=== PATIENT | female | born 1950 | race Caucasian/White ===

== ENCOUNTER 2017-11-07 12:24 | Emergency (ER) | payer OTHER ==
--- NOTE | 2017-11-07 12:59 | ED CARDIAC/CP/PALPITATIONS ---
History of Present Illness General Chief Complaint: Chest Pain Stated Complaint: CHEST PAIN Source: patient, old records Exam Limitations: no limitations Vital Signs & Intake/Output Vital Signs & Intake/Output Vital Signs Date Time Temp Pulse Resp B/P B/P Pulse O2 O2 Flow FiO2 Mean Ox Delivery Rate 11/07 1525 98.7 67 20 149/68 97 Room Air Room Air 11/07 1233 98.1 82 28 127/77 95 Room Air Allergies Coded Allergies: No Known Allergies (11/07/17) Reconcile Medications Atorvastatin Calcium 20 MG TABLET 1 TAB PO DAILY CHOLESTEROL (Reported) Enalapril Maleate 20 MG TABLET 1 TAB PO DAILY BP (Reported) Fluoxetine HCl 20 MG CAPSULE 1 CAP PO DAILY MENTAL HEALTH (Reported) Gabapentin 300 MG CAPSULE 1 CAP PO QPM UNKNOWN (Reported) Triage Note: SENT BY DR. GOTTI, C/O R SIDED CHEST PAIN RADIATING TO BACK WITH SOB X 3 WEEK, RECENTLY DXD WITH LUNG CA (R), UNSURE OF TYPE AND STAGE. EKG DONE ON ARRIVAL. Triage Nurses Notes Reviewed? yes Onset: Gradual Duration: week(s): Timing: recent history Quality/Severity: moderate Location: right lower chest HPI: 67yo female with hx of recent lung CA diagnosis sent in to ED by Dr. Gotti for evaluation of right sided chest pain x several weeks. Patient reports worsening chest pain for the past several weeks. Pain described as sharp, pleuritic, right anterior chest, without radiation. Patient has had previous CTA and PET scan imaging earlier this year. Patient states Im here for a scan. Patient denies dyspnea, hemoptysis, fevers, chills, abdominal pain, syncope. (Mackenzie NASH,Bozena Bautista) Past History Travel History Traveled to [place] past 21 day No Medical History Any Pertinent Medical History? see below for history Neurological: NONE EENT: NONE Cardiovascular: NONE Respiratory: LUNG CA Gastrointestinal: NONE Hepatic: NONE Renal: NONE Musculoskeletal: NONE Psychiatric: NONE Endocrine: NONE Cancer(s): lung cancer Surgical History Surgical History: non-contributory Psychosocial History What is your primary language Polish Tobacco Use: Current Daily Use Daily Tobacco Use Amount/Type: => 5 Cigarettes daily ETOH Use: denies use Family History Hx Contributory? No (Bozena Carrera) Review of Systems Review of Systems Constitutional: Reports: no symptoms. EENTM: Reports: no symptoms. Respiratory: Reports: see HPI. Cardiovascular: Reports: see HPI. GI: Reports: no symptoms. Genitourinary: Reports: no symptoms. Musculoskeletal: Reports: no symptoms. Skin: Reports: no symptoms. Neurological/Psychological: Reports: no symptoms. Hematologic/Endocrine: Reports: no symptoms. Immunologic/Allergic: Reports: no symptoms. All Other Systems: Reviewed and Negative (Bozena Carrera) Physical Exam Physical Exam General Appearance: well developed/nourished, no apparent distress, alert, awake Head: atraumatic, normal appearance Eyes: Bilateral: normal appearance. Ears, Nose, Throat: hearing grossly normal Neck: normal inspection, supple, full range of motion Respiratory: normal breath sounds, no respiratory distress, lungs clear, right anterior chest wall tenderness Cardiovascular: regular rate/rhythm Peripheral Pulses: 2+ radial (R), 2+ radial (L) Gastrointestinal: normal bowel sounds, soft, non-tender, no organomegaly Back: normal inspection, normal range of motion Extremities: normal inspection, normal range of motion, no edema Neurologic/Psych: awake, alert, oriented x 3 Skin: intact, normal color, warm/dry Core Measures ACS in differential dx? Yes CVA/TIA Diagnosis No Sepsis Present: No Sepsis Focused Exam Completed? No (Bozena Carrera) Progress Differential Diagnosis: AMI, cholecystitis, musculoskeletal pain, pericarditis, pneumonia, pneumothorax, pulmonary embolism, unstable angina Plan of Care: Orders Procedure Date/time Status TROPONIN LEVEL 11/07 1254 Complete D-DIMER 11/07 1254 Complete COMPREHENSIVE METABOLIC PANEL 11/07 1254 Complete CBC WITHOUT DIFFERENTIAL 11/07 1254 Complete EKG 11/07 1226 Active Laboratory Tests 11/07/17 1310: Anion Gap 11, Estimated GFR > 60, BUN/Creatinine Ratio 14.0, Glucose 90, Calcium 8.9, Total Bilirubin 0.6, AST 11 L, ALT 18, Alkaline Phosphatase 77, Troponin I < 0.01, Total Protein 7.0, Albumin 3.7, Globulin 3.3, Albumin/Globulin Ratio 1.1 , D-Dimer High Sensitivty 541 H, CBC w Diff NO MAN DIFF REQ, RBC 3.86 L, MCV 80.0 L, MCH 26.3 L, MCHC 32.8 L, RDW 16.8 H, MPV 7.2 L, Gran % 71.0, Lymphocytes % 19.2 L, Monocytes % 8.1, Eosinophils % 1.3, Basophils % 0.4, Absolute Granulocytes 6.6 H, Absolute Lymphocytes 1.8, Absolute Monocytes 0.7 H, Absolute Eosinophils 0.1, Absolute Basophils 0 CTA rules out PE. Patients labs are stable compared to previous studies. Patient reports significant improvement in her pain following IV Morphine. Spoke with Dr. Gotti regarding this patient. He states patient can go home, he has prescribed her pain medications which are at her pharmacy, he will call her for follow up tomorrow morning. Patient feels ready to go home at this time. The patient is in no acute distress, her vital signs are stable. The patient agrees with the plan of care. The patient was seen and evaluate by Dr. Castillo who agrees with the plan of care. Diagnostic Imaging: Viewed by Me: CT Scan. Discussed w/RAD: CT Scan. Radiology Impression: PATIENT: PACHECO SANDHU PRESENT AGE: 67 PATIENT ACCOUNT NO: [id number] : 49 LOCATION: [facility] ORDERING PHYSICIAN: Bozena NASH SERVICE DATE: 11/07/17 EXAM TYPE: CAT - CTA CHEST-PULMONARY EMBOLISM EXAMINATION: CT ANGIOGRAM OF THE CHEST WITH AND WITHOUT CONTRAST (CT PULMONARY ANGIOGRAM FOR PE) CLINICAL INFORMATION: Chest pain with history of lung cancer. COMPARISON: CTA chest 09/18/2017. TECHNIQUE: Prior to contrast administration, noncontrast localization images were obtained. Subsequently, multidetector volumetric imaging was performed from the thoracic inlet to below the diaphragms following the administration of 95 mL Optiray 320 intravenous contrast. No contrast reaction reported. Sagittal, coronal, and MIP oblique sagittal reformatted images were obtained on the CT workstation, uploaded to PACS, and reviewed. DLP: 390.59 mGy-cm. FINDINGS: QUALITY OF STUDY/CONTRAST BOLUS: Satisfactory. PULMONARY ARTERIES: No central or segmental pulmonary emboli. THORACIC AORTA: No aneurysm or dissection. There are atherosclerotic vascular wall calcifications of the aortic arch. LUNG: There are emphysematous changes of lung. The multiple lung nodules seen on the CT of chest of 09/18/2017 are persistent. These have not substantially changed in size or number. For example one of the larger nodules in the subpleural lung in the right middle lobe axial image 38 (3) measures 9 mm on today's study and the prior exam. PLEURA: Again demonstrated are multiple loculated pleural collections. The volume of the loculated collections has increased since the prior exam. The largest collection remains posterior at the right lung base. This measures approximately 8 x 7.7 cm, axial image 31 (4), and 13.8 cm superior to inferior on sagittal image 12, on today's study. On 09/18/2017 is measured approximately 7.3 x 6.2 cm x 9.2 cm. There are numerous other areas of loculated fluid which are new since prior exam and extend along the pleural surface anterior, laterally and inferiorly. MEDIASTINUM: The mediastinal lymphadenopathy in the subcarina and the right hilum and AP window is persistent. No significant change of the lymphadenopathy since the CT scan of 09/18/2017. CHEST WALL/AXILLA : No axillary or internal mammary lymphadenopathy. OSSEOUS STRUCTURES: Multilevel degenerative spondylosis of the spine with disc height narrowing and endplate spurring of the vertebrae. Status post fusion of the cervical spine with orthopedic plate and screws partially visualized. UPPER ABDOMEN: Again seen are bilateral adrenal masses. These are not substantially changed since prior CT studies. No focal lesion seen in the visualized portions of liver, spleen, pancreas or kidneys. IMPRESSION: 1. No evidence of pulmonary embolism. 2. No acute infiltrate. There are emphysematous changes of the lungs. 3. Increasing volume and size of right-sided loculated pleural collection since prior CT chest 09/18/2017. 4. Persistent multiple bilateral lung nodules stable in size and number since CT chest 09/18/2017. 5. Persistent mediastinal and right hilar lymphadenopathy. 6. Persistent bilateral adrenal masses. VTE: Negative for pulmonary embolism. DICTATED BY: Kamaljit Vargas MD DATE/TIME DICTATED:11/07/171457 TRACE EVIDENCE TECHNICIAN:ROBERT DATE/TIME TRANSCRIBED:11/07/171457 CONFIDENTIAL, DO NOT COPY WITHOUT APPROPRIATE AUTHORIZATION. <Electronically signed in Other Vendor System> SIGNED BY: Kamaljit Vargas MD 11/07/17 1205 Initial ED EKG: sinus rhythm @73bpm, nonspecific ST changes (Mackenzie NASH,Bozena Bautista) Departure Departure Disposition: HOME OR SELF CARE Condition: Stable Clinical Impression Primary Impression: Chest pain Qualifiers: Chest pain type: chest pain on breathing Qualified Code: R07.1 - Chest pain on breathing Secondary Impressions: Lung cancer Qualifiers: Laterality: unspecified laterality Lung location: unspecified part of lung Qualified Code: C34.90 - Malignant neoplasm of unspecified part of unspecified bronchus or lung Pleural effusion Referrals: Ad NASH,Carolann Pena (PCP/Family) Additional Instructions: Follow-up with Dr. Gotti regarding worsening fluid in your lung. He plans on calling you tomorrow. He sent pain medication to your pharmacy. This is likely responsible for some of your right sided pain. If you have any worsening symptoms or other concerns please return to the emergency department. Please note that there might be incidental findings in your evaluation that are unrelated to the current emergency department visit. Please notify your primary care doctor about this emergency department visit in order to obtain and review all of the testing performed so that these incidental findings can be monitored as needed. If you had an x-ray performed, please understand that some fractures may not be seen on the initial set of x-rays. If your symptoms persist you might need a repeat set of x-rays to check for such a fracture. If you had a laceration evaluated, please understand that foreign bodies such as glass or wood may not be visible to the naked eye or on plain x-rays. If the wound becomes red, swollen, increasingly more painful or if there is any drainage from the wound, please have it reevaluated by a physician for the possibility of a retained foreign body. If you're unable to follow up as outlined in the discharge instructions please return to the emergency department. Thank you for choosing the [facility] Emergency Department for your care. It was a pleasure to serve you today. Departure Forms: Customer Survey General Discharge Information (Bozena Carrera) PA/CELL COVERER Co-Sign Statement Statement: ED Attending supervision documentation- [X] I saw and evaluated the patient. I have also reviewed all the pertinent lab results and diagnostic results. I agree with the findings and the plan of care as documented in the PA's/CELL COVERER's documentation. [] I have reviewed the ED Record and agree with the PA's/CELL COVERER's documentation. [] Additions or exceptions (if any) to the PAs/CELL COVERER's note and plan are summarized below: [] (Soham Castillo DO) Critical Care Note Critical Care Note Critical Care Time: non-applicable (Bozena Carrera)
[2017-11-07 13:22] LABS: ABSOLUTE BASOPHIL COUNT 0 /CUMM (0.0-0.2); ABSOLUTE EOSINOPHIL COUNT 0.1 /CUMM (0.0-0.7); ABSOLUTE GRANULOCYTE CT 6.6 /CUMM (1.4-6.5); ABSOLUTE LYMPH COUNT 1.8 /CUMM (1.2-3.4); ABSOLUTE MONOCYTE COUNT 0.7 /CUMM (0.10-0.60); BASOPHIL % 0.4 % (0.0-2.0); EOSINOPHIL % 1.3 % (0-5); HEMATOCRIT 30.9 % (37-47); MEAN CORPUSCULAR HGB 26.3 PG (27.0-31.0); MEAN CORPUSCULAR HGB CONC 32.8 G/DL (33.0-37.0); MEAN PLATELET VOLUME 7.2 FL (7.4-10.4); PLATELET COUNT 289 /CUMM (130-400); RBC DISTRIBUTION WIDTH 16.8 % (11.5-14.5); RED BLOOD CELL CT 3.86 /CUMM (4.20-5.40); WHITE BLOOD CELL COUNT 9.3 /CUMM (4.8-10.8)
[2017-11-07] MEDS ORDERED: ENALAPRIL MALEA20 M1 PO (14:20)
[2017-11-07] MEDS ORDERED: ATORVASTATIN CA20 M1 PO (14:20)
[2017-11-07] MEDS ORDERED: FLUOXETINE HCL20 M2 PO (14:21)
[2017-11-07] MEDS ORDERED: GABAPENTIN300 M2 PO (14:21)
--- NOTE | 2017-11-07 15:33 | CT SCAN REPORT ---
EXAMINATION: CT ANGIOGRAM OF THE CHEST WITH AND WITHOUT CONTRAST (CT PULMONARY ANGIOGRAM FOR PE) CLINICAL INFORMATION: Chest pain with history of lung cancer. COMPARISON: CTA chest 09/18/2017. TECHNIQUE: Prior to contrast administration, noncontrast localization images were obtained. Subsequently, multidetector volumetric imaging was performed from the thoracic inlet to below the diaphragms following the administration of 95 mL Optiray 320 intravenous contrast. No contrast reaction reported. Sagittal, coronal, and MIP oblique sagittal reformatted images were obtained on the CT workstation, uploaded to PACS, and reviewed. DLP: 390.59 mGy-cm. FINDINGS: QUALITY OF STUDY/CONTRAST BOLUS: Satisfactory. PULMONARY ARTERIES: No central or segmental pulmonary emboli. THORACIC AORTA: No aneurysm or dissection. There are atherosclerotic vascular wall calcifications of the aortic arch. LUNG: There are emphysematous changes of lung. The multiple lung nodules seen on the CT of chest of 09/18/2017 are persistent. These have not substantially changed in size or number. For example one of the larger nodules in the subpleural lung in the right middle lobe axial image 38 (3) measures 9 mm on today's study and the prior exam. PLEURA: Again demonstrated are multiple loculated pleural collections. The volume of the loculated collections has increased since the prior exam. The largest collection remains posterior at the right lung base. This measures approximately 8 x 7.7 cm, axial image 31 (4), and 13.8 cm superior to inferior on sagittal image 12, on today's study. On 09/18/2017 is measured approximately 7.3 x 6.2 cm x 9.2 cm. There are numerous other areas of loculated fluid which are new since prior exam and extend along the pleural surface anterior, laterally and inferiorly. MEDIASTINUM: The mediastinal lymphadenopathy in the subcarina and the right hilum and AP window is persistent. No significant change of the lymphadenopathy since the CT scan of 09/18/2017. CHEST WALL/AXILLA: No axillary or internal mammary lymphadenopathy. OSSEOUS STRUCTURES: Multilevel degenerative spondylosis of the spine with disc height narrowing and endplate spurring of the vertebrae. Status post fusion of the cervical spine with orthopedic plate and screws partially visualized. UPPER ABDOMEN: Again seen are bilateral adrenal masses. These are not substantially changed since prior CT studies. No focal lesion seen in the visualized portions of liver, spleen, pancreas or kidneys. IMPRESSION: 1. No evidence of pulmonary embolism. 2. No acute infiltrate. There are emphysematous changes of the lungs. 3. Increasing volume and size of right-sided loculated pleural collection since prior CT chest 09/18/2017. 4. Persistent multiple bilateral lung nodules stable in size and number since CT chest 09/18/2017. 5. Persistent mediastinal and right hilar lymphadenopathy. 6. Persistent bilateral adrenal masses. VTE: Negative for pulmonary embolism.
[2017-11-07 16:08] VITALS: BP 136/84
== END 2017-11-07 16:09 ==
LOC: ERH 12:24
PROVIDERS: Physician Assistant
DX: R07.89 Other chest pain (principal); C34.90 Malignant neoplasm of unspecified part of unspecified bronchus or lung; J90 Pleural effusion, not elsewhere classified
CPT/HCPCS: 93005; 93010

== ENCOUNTER 2017-12-18 13:22 | Inpatient (IN) | payer OTHER ==
[~2017-12-18] VITALS: Ht 165.1 cm; Wt 65.3 kg
[~2017-12-18 13:22] MED LIST: ATORVASTATIN CA20 M1 PO; ENALAPRIL MALEA20 M1 PO; FLUOXETINE HCL20 M2 PO; GABAPENTIN300 M2 PO
--- NOTE | 2017-12-18 13:54 | ED MVC/FALL/TRAUMA COMPLAINT ---
History of Present Illness General Chief Complaint: Fall Stated Complaint: MECHANICAL FALL "MISSED BED AND FELL ON MY BUTT" Source: patient, family Exam Limitations: no limitations Allergies Coded Allergies: No Known Allergies (11/07/17) Reconcile Medications Atorvastatin Calcium 20 MG TABLET 1 TAB PO DAILY CHOLESTEROL (Reported) Enalapril Maleate 20 MG TABLET 1 TAB PO DAILY BP (Reported) Fluoxetine HCl 20 MG CAPSULE 1 CAP PO DAILY MENTAL HEALTH (Reported) Gabapentin 300 MG CAPSULE 1 CAP PO QPM UNKNOWN (Reported) Triage Note: 67F STATES SHE WAS WALKING FROM BATHROOM TO BED AND THOUGHT SHE WAS AT THE BED AND SAT DOWN BUT MISSED IT. PT HAS BEEN ALSO HAVING SEVERE PAIN IN RIB AREA DUE TO LARGE LUNG TUMOR, CURRENTLY ON HIGH DOSE OXYCODONE AND OXYCONTIN REGIMEN WITHOUT RELIEF. HYPOTENSIVE IN TRIAGE. +ABD CRAMPS, DIARRHEA X1 DAY. SOB AT BASELINE. DENIES HEMOPTYSIS. FOLLOWED BY DR HORN Triage Nurses Notes Reviewed? yes Onset: Gradual Duration: constant Timing: single episode today Severity: severe Severity Numbers: 10 HPI: Patient is a 67-year-old female with a past medical history of known right-sided lung cancer where she states that today patient was in her normal state of health in which patient does take high levels of narcotics for her right-sided chest and lung pain where she states that today after having a loose watery diarrhea episode she stood up walk to the bedroom where patient then tried to sit in her bed where she missed the bed and patient landed on her buttock region patient fell to the floor resulting acute onset of worsening right-sided lateral rib pain. Patient denies any specific right lateral rib trauma Denies any preceding episode of lightheaded sensation or dizziness denies any head trauma or syncope loss of consciousness neck or back pain extremity pain abdominal pain. Patient states that deep inhalation and palpation makes worse Patient's oncologist Dr. Medina she starts her treatment protocol tomorrow (Vijaya NASH,John) Vital Signs & Intake/Output Vital Signs & Intake/Output Vital Signs Date Time Temp Pulse Resp B/P B/P Pulse O2 O2 Flow FiO2 Mean Ox Delivery Rate 12/18 1910 98.8 82 18 102/60 94 Room Air 12/18 1606 98.3 87 14 92/44 93 Room Air 12/18 1539 92 Room Air 12/18 1341 97.0 91 18 74/50 92 Room Air (Cristy ALVARENGA,Soham Kelsey) Past History Travel History Traveled to [place] past 21 day No Medical History Any Pertinent Medical History? see below for history Neurological: NONE EENT: NONE Cardiovascular: NONE Respiratory: LUNG CA Gastrointestinal: NONE Hepatic: NONE Renal: NONE Musculoskeletal: NONE Psychiatric: NONE Endocrine: NONE Cancer(s): lung cancer Surgical History Surgical History: non-contributory Psychosocial History What is your primary language Armenian Tobacco Use: Refused to answer Family History Hx Contributory? No (John Bourgeois) Review of Systems Review of Systems Constitutional: Reports: no symptoms. Eyes: Reports: no symptoms. Ears, Nose, Throat, Mouth: Reports: no symptoms. Respiratory: Reports: see HPI, cough. Cardiovascular: Reports: see HPI. Gastrointestinal/Abdominal: Reports: no symptoms. Genitourinary: Reports: no symptoms. Musculoskeletal: Reports: no symptoms. Skin: Reports: no symptoms. Neurological/Psychological: Reports: no symptoms. All Other Systems: Reviewed and Negative (John Bourgeois) Physical Exam Physical Exam General Appearance: moderate distress Head: atraumatic Eyes: Bilateral: normal appearance, PERRL. Ears, Nose, Throat, Mouth: hearing grossly normal Neck: normal inspection, no midline tenderness Respiratory: normal breath sounds, rhonchi Cardiovascular: regular rate/rhythm Gastrointestinal: normal bowel sounds, soft, non-tender Back: no vertebral tenderness Extremities: normal range of motion Neurologic/Psych: no motor/sensory deficits, awake Skin: intact Diagram Body: 1) Normal inspection right lateral intercostal point tenderness clear lungs auscultation Core Measures ACS in differential dx? No CVA/TIA Diagnosis No Sepsis Present: Yes Sepsis Focused Exam Completed? Yes (John Bourgeois) ED Sepsis Exam Date of Focused Sepsis Exam: 12/18/17 Time of Focused Sepsis Exam: 1402 Sepsis Cardiac Exam: Regular Rate/Rhythm Sepsis Resp Exam: Ronchi Sepsis Cap Refill Exam: <2 Sec Sepsis Peripheral Pulse Exam: Normal Sepsis Peripheral Pulse Location: Radial Sepsis Skin Color Exam: Normal for Ethnicity Skin Temp/Moisture Exam: Warm/Dry (John Bourgeois) Progress Differential Diagnosis: aoritic dissection, abd injury, C/T/L spine injury, ext injury, ICH, pelvis injury, pnemothorax, spinal cord injury Diagnostic Imaging: Viewed by Me: CT Scan. Radiology Impression: SEE COMMENTS Initial ED EKG: sinus rhythm at 90 bpm with noted anterolateral ST depressions that is new Comments: PATIENT: PACHECO SANDHU PRESENT AGE: 67 PATIENT ACCOUNT NO: [id number] : 49 LOCATION: [facility] ORDERING PHYSICIAN: John NASH SERVICE DATE: 12/18/17-9933 EXAM TYPE: CAT - CT CHEST WO IV CONTRAST EXAMINATION: CT CHEST WITHOUT CONTRAST CLINICAL INFORMATION: Right lateral rib pain after a fall. Known tumor in the lung. COMPARISON: Plain film chest x-ray 11/27/2017. CTA of chest 11/07/2017, 09/18/2017. TECHNIQUE: Multidetector volumetric CT imaging of the chest was done. Axial MIP volume rendering provided. Sagittal and coronal reformatted images were obtained. DLP: 282.41 mGy-cm FINDINGS: PLEURA/LUNGS: Right lung: The pleural-based lesion seen in the posterior right lung has increased in size since the CT scan of 11/07/2017. This is the largest pleural-based lesion in the right hemithorax. On the CT scan of 11/07/2017, this had an AP dimension of 8.1 cm. On today's exam, this lesion now measures 9.1 cm AP. The masses at the right posterior lung do cause mild compressive atelectasis in the surrounding lung. Multiple other pleural-based lesions in the right hemithorax are also slightly increased in size since prior CT scan. There are lung nodules, though, that have remained stable: 1. Right upper lobe. Image 175 (4). 0.7 cm. Stable. 2. Pleural-based nodule at the right lung base along the major fissure, image 233 (4). 6 mm. This is stable. Left lung: There are stable left lung nodules. 1. In the left lung, there is a 3 mm reticular opacity in the subpleural lung at the left upper lobe, axial image 30 (3). This is unchanged since CT scan 11/07/2017. 2. At the left posterolateral costophrenic angle, there is a smooth bordered nodule measuring 0.8 cm, axial image 51 (3). This is unchanged since prior study. 3. Left lower lobe image 264 (4) 3 mm nodule has remained stable. 4. Left lower lobe image 281 (4) subpleural nodule measuring 3 mm has remained stable. There is zarate-emphysematous lucency of lung. There is no acute infiltrate. There is no pneumothorax. There is no pleural effusion. MEDIASTINUM: There are small shotty lymph nodes in the mediastinum at the pretracheal retrovascular space and AP window, but there is no significant lymphadenopathy. The subcentimeter lymph nodes are stable in appearance since the prior CT scan of 11/07/2017. There is atherosclerotic vascular wall calcification of the aorta and coronary arteries. There is no pericardial effusion. AXILLA: No lymphadenopathy. UPPER ABDOMEN: There is enlargement of both the right and left adrenal gland. The right adrenal gland measures 2.5 cm AP. The left adrenal gland measures 2.5 cm AP. The lesions in both adrenal glands are stable since CT scan of 11/07/2017. The right adrenal gland mass has a density measurement of 21 Hounsfield units. The left adrenal mass has density measurement of 35 Hounsfield units. There is atherosclerotic vascular wall calcifications of the abdominal aorta without aneurysm. The visualized portions of the liver, spleen, pancreas, and kidneys remain unremarkable. OSSEOUS STRUCTURES: There is degenerative spondylosis of the spine, without acute osseous abnormality. No rib fracture. Status post fusion with orthopedic plate and screw at lower cervical spine. IMPRESSION: 1. No acute osseous abnormality. 2. The multiple pleural-based lesions in the right hemithorax have increased slightly in size since prior CT studies. 3. There are additional lung nodules in the left lung and right lung, which have not changed substantially since prior CT scan. 4.. Zarate-emphysematous lucency of lung. 5. Shotty subcentimeter lymph nodes in the mediastinum. No bulky lymphadenopathy. 6. Stable bilateral adrenal masses. DICTATED BY: Kamaljit Vargas MD DATE/TIME DICTATED:12/18/17 (John oBurgeois) Plan of Care: Orders Procedure Date/time Status Regular Diet 12/19 B Active CBC WITHOUT DIFFERENTIAL 12/19 06 Active BASIC ELECTROLYTES PLUS BUN&CR 12/19 06 Active TROPONIN LEVEL 12/19 0200 Active EKG 12/19 0200 Active LACTIC ACID 12/18 2101 Active CULTURE,URINE 12/18 1903 Active CORTISOL AM 12/18 190 Active Pathway - chart 12/18 185 Active PT Evaluate & Treat 12/18 1856 Active Pathway - chart 12/18 1856 Active House Staff 12/18 1856 Active Patient Data 12/18 1856 Active Code Status 06/25 1857 Active TROPONIN LEVEL 12/18 1854 Active EKG 12/18 185 Active CULTURE,STOOL 12/18 185 Active OVA AND PARASITE EXTENDED 12/18 185 Active URINALYSIS 12/18 1851 Active LACTIC ACID 12/18 1801 Complete Misc Message 12/18 1750 Active ED Holding Orders 12/18 1750 Active Admit to inpatient 12/18 1750 Active Vital Signs 12/18 1750 Active Code Status 12/18 1750 Complete Patient Data 12/18 1742 Active Add-on Test (ER Only) 12/18 1715 Active BLOOD CULTURE 12/18 1715 Active Intake & Output 12/18 1536 Active URINE DRUG SCREEN FOR ER ONLY 12/18 1355 Active TROPONIN LEVEL 12/18 1355 Active COMPREHENSIVE METABOLIC PANEL 12/18 1355 Active CBC WITHOUT DIFFERENTIAL 12/18 1355 Active EKG 12/18 1355 Active THYROID STIMULATING HORMONE 12/18 1314 Active LACTIC ACID 12/18 1314 Active FREE T4 12/18 1314 Active CORTISOL PM 12/18 1314 Active Lab Add-on Test 12/18 UNK Active VTE Mechanical Prophylaxis 12/18 UNK Active Vital Signs 12/18 UNK Active MISTAKE 12/18 UNK Active Telemetry/Rn L And D 12/18 UNK Active Hemoccult 12/18 UNK Active Activity/Ambulation 12/18 UNK Active Current Medications Sig/Matt Start time Last Medication Dose Stop Time Status Admin Oxycodone HCl 10 MG Q6 12/18 2359 AC (Roxicodone) Gabapentin 300 MG QPM 12/18 2100 AC (Neurontin) Sodium Chloride 1,000 ML BOLUS ONE 12/18 1914 UNVr (Normal Saline 0.9%) 12/18 2013 Acetaminophen 650 MG Q6P PRN 12/18 1900 AC (Tylenol) Fluoxetine HCl 20 MG DAILY 12/18 1857 AC (Prozac) Atorvastatin Calcium 20 MG DAILY 12/18 1856 AC (Lipitor) Laboratory Tests 12/18/17 1805: Lactic Acid 4.9 H 12/18/17 1314: Anion Gap 17 H, Estimated GFR > 60, BUN/Creatinine Ratio 24.4, Glucose 133 H, Lactic Acid 5.6 H, Calcium 9.5, Total Bilirubin 1.0, AST 50 H, ALT 30, Alkaline Phosphatase 88, Troponin I 0.03, Total Protein 7.1, Albumin 3.6, Globulin 3.5, Albumin/Globulin Ratio 1.0 L, TSH Pending, Free T4 Pending, Cortisol PM Sample Pending, CBC w Diff MAN DIFF ORDERED, RBC 4.05 L, MCV 77.6 L, MCH 25.3 L, MCHC 32.6 L, RDW 18.9 H, MPV 7.6, Gran % 90.2 H, Lymphocytes % 4.5 L, Monocytes % 5.1, Eosinophils % 0.1, Basophils % 0.1, Absolute Granulocytes 16.8 H, Segmented Neutrophils Pending, Absolute Lymphocytes 0.8 L , Absolute Monocytes 1.0 H, Absolute Eosinophils 0, Absolute Basophils 0 Microbiology 12/18 1902 URINE ROUT: Urine Culture - ORD 12/19 1851 STOOL: Ova and Parasite Macroscopic Exam - ORD 12/19 1851 STOOL: Stool Culture - ORD 12/18 1814 BLOOD: Blood Culture - RECD 12/18 1804 BLOOD: Blood Culture - RECD Patient upon initial presentation was noted to be in distress and hypotensive denies any head strike Nexus criteria 0 no central spinous tenderness nontender abdomen No respiratory distress Initially I am hesitant to administering narcotics due to patient's blood pressure Patient will receive blood work and CT scan of chest Initial EKG showed new changes from the proximal leg 1 month ago for concerns of anterolateral leads depression patient also presents hypotensive most likely this is due to patient's narcotic use Patient has nontender extremities upon palpation as well as abdomen and lumbar spine Patient does note to have mild rhonchi to the posterior lung field patient states that she has mild cough however denies any fever patient does have concerns of leukocytosis and lactic acidosis CT scan was unremarkable for concerns of pneumonia however patient does have concerns of lung mass which can superimposed infectious process of the lung. Patient was given prophylactic antibiotics blood cultures pending patient will be admitted to telemetry for concerns of EKG findings Discussed patient cardiology who is aware and agrees with admission Discussed admission with patient who agrees as well as family Blood pressure did improve with IV fluids (John Bourgeois) (Cristy ALVARENGA,Soham Kelsey) Departure Departure Disposition: STILL A PATIENT Condition: Stable Clinical Impression Primary Impression: EKG abnormalities Secondary Impressions: Pneumonia, Septic shock Referrals: Carolann Owen (PCP/Family) Departure Forms: Customer Survey General Discharge Information Admission Note Spoke With: Nikko Araiza MD Documentation of Exam: Documentation of any treatments & extenuating circumstances including Concerns Regarding Discharge (functional status, medication knowledge or non-compliance, living conditions, etc.) that warrant an admission rather than observation: [ Patient requires IV fluids, pain management, infectious disease consultation, IV antibiotics, telemetry monitoring, cardiology consultation, oncology consultation, repeat labs and EKG] (John Bourgeois) PA/HOME HEALTH BILLING SPECIALIST Co-Sign Statement Statement: ED Attending supervision documentation- [x] I saw and evaluated the patient. I have also reviewed all the pertinent lab results and diagnostic results. I agree with the findings and the plan of care as documented in the PA's/HOME HEALTH BILLING SPECIALIST's documentation. Patient presents for evaluation of pain status post fall, patient has a history of lung cancer. Physical examination reveals [] I have reviewed the ED Record and agree with the PA's/HOME HEALTH BILLING SPECIALIST's documentation. [] Additions or exceptions (if any) to the PAs/HOME HEALTH BILLING SPECIALIST's note and plan are summarized below: [] (Cristy ALVARENGA,Soham Kelsey) Critical Care Note Critical Care Note Critical Care Time: 30-74 min (John Bourgeois)
[2017-12-18 15:40] LABS: ABSOLUTE BASOPHIL COUNT 0 /CUMM (0.0-0.2); ABSOLUTE EOSINOPHIL COUNT 0 /CUMM (0.0-0.7); ABSOLUTE GRANULOCYTE CT 16.8 /CUMM (1.4-6.5); ABSOLUTE LYMPH COUNT 0.8 /CUMM (1.2-3.4); BASOPHIL % 0.1 % (0.0-2.0); EOSINOPHIL % 0.1 % (0-5); HEMATOCRIT 31.4 % (37-47); MEAN CORPUSCULAR HGB 25.3 PG (27.0-31.0); MEAN CORPUSCULAR HGB CONC 32.6 G/DL (33.0-37.0); MEAN CORPUSCULAR VOLUME 77.6 FL (81.0-99.0); MEAN PLATELET VOLUME 7.6 FL (7.4-10.4); PLATELET COUNT 350 /CUMM (130-400); RBC DISTRIBUTION WIDTH 18.9 % (11.5-14.5); RED BLOOD CELL CT 4.05 /CUMM (4.20-5.40); WHITE BLOOD CELL COUNT 18.6 /CUMM (4.8-10.8)
[2017-12-18 15:50] LABS: GRANULOCYTE % 90.2 % (42.2-75.2)
--- NOTE | 2017-12-18 16:21 | CT SCAN REPORT ---
EXAMINATION: CT CHEST WITHOUT CONTRAST CLINICAL INFORMATION: Right lateral rib pain after a fall. Known tumor in the lung. COMPARISON: Plain film chest x-ray 11/27/2017. CTA of chest 11/07/2017, 09/18/2017. TECHNIQUE: Multidetector volumetric CT imaging of the chest was done. Axial MIP volume rendering provided. Sagittal and coronal reformatted images were obtained. DLP: 282.41 mGy-cm FINDINGS: PLEURA/LUNGS: Right lung: The pleural-based lesion seen in the posterior right lung has increased in size since the CT scan of 11/07/2017. This is the largest pleural-based lesion in the right hemithorax. On the CT scan of 11/07/2017, this had an AP dimension of 8.1 cm. On today's exam, this lesion now measures 9.1 cm AP. The masses at the right posterior lung do cause mild compressive atelectasis in the surrounding lung. Multiple other pleural-based lesions in the right hemithorax are also slightly increased in size since prior CT scan. There are lung nodules, though, that have remained stable: 1. Right upper lobe. Image 175 (4). 0.7 cm. Stable. 2. Pleural-based nodule at the right lung base along the major fissure, image 233 (4). 6 mm. This is stable. Left lung: There are stable left lung nodules. 1. In the left lung, there is a 3 mm reticular opacity in the subpleural lung at the left upper lobe, axial image 30 (3). This is unchanged since CT scan 11/07/2017. 2. At the left posterolateral costophrenic angle, there is a smooth bordered nodule measuring 0.8 cm, axial image 51 (3). This is unchanged since prior study. 3. Left lower lobe image 264 (4) 3 mm nodule has remained stable. 4. Left lower lobe image 281 (4) subpleural nodule measuring 3 mm has remained stable. There is zarate-emphysematous lucency of lung. There is no acute infiltrate. There is no pneumothorax. There is no pleural effusion. MEDIASTINUM: There are small shotty lymph nodes in the mediastinum at the pretracheal retrovascular space and AP window, but there is no significant lymphadenopathy. The subcentimeter lymph nodes are stable in appearance since the prior CT scan of 11/07/2017. There is atherosclerotic vascular wall calcification of the aorta and coronary arteries. There is no pericardial effusion. AXILLA: No lymphadenopathy. UPPER ABDOMEN: There is enlargement of both the right and left adrenal gland. The right adrenal gland measures 2.5 cm AP. The left adrenal gland measures 2.5 cm AP. The lesions in both adrenal glands are stable since CT scan of 11/07/2017. The right adrenal gland mass has a density measurement of 21 Hounsfield units. The left adrenal mass has density measurement of 35 Hounsfield units. There is atherosclerotic vascular wall calcifications of the abdominal aorta without aneurysm. The visualized portions of the liver, spleen, pancreas, and kidneys remain unremarkable. OSSEOUS STRUCTURES: There is degenerative spondylosis of the spine, without acute osseous abnormality. No rib fracture. Status post fusion with orthopedic plate and screw at lower cervical spine. IMPRESSION: 1. No acute osseous abnormality. 2. The multiple pleural-based lesions in the right hemithorax have increased slightly in size since prior CT studies. 3. There are additional lung nodules in the left lung and right lung, which have not changed substantially since prior CT scan. 4.. Zarate-emphysematous lucency of lung. 5. Shotty subcentimeter lymph nodes in the mediastinum. No bulky lymphadenopathy. 6. Stable bilateral adrenal masses.
--- NOTE | 2017-12-18 17:56 | History & Physical ---
Sugey ALVARENGA,Chioma 12/18/17 4664: General Information and HPI MD Statement: I have seen and personally examined PACHECO SANDHU and documented this H&P. The patient is a 67 year old F who presented with a patient stated chief complaint of [FALL]. Source of Information: patient, old records, EMS Exam Limitations: no limitations History of Present Illness: Patient 5-year-old female with past medical history significant for recently diagnosed metastatic non-small cell lung cancer, hypertension, cervical myelomalacia, depression presented to [facility] after having a mechanical fall. Patient apparently went to the restroom today is afternoon, when coming back try to sit on her bed and fell down. She denies any nausea vomiting, lightheadedness prior to her fall, thought to be disclose enough to sit unfortunately fell down due to less proximately. She didn't have any confusion/ convulsive movements during the fall. She called her who reached home from his workplace. She found to be in restroom having an episode of diarrhea but then he reached back. They presented to ER subsequently for further evaluation. She recently ate these of the soft reports that on Monday. Today she had single episode of diarrhea, otherwise no urinary symptoms, no incrase in cough from baseline, no fevers, chest pain. She did have crampy abdominal pain. For the past few months patient has been having decreased oral intake and significant weight loss. She was able to do her activities of daily living like walking talking although short of breath with these activities. She recently had a chest x-ray in August which did show pleural effusion which was further evaluated by CT scan of chest she was referred to Dr. Campos for further evaluation underwent a PET scan which did show malignancy in the right lung nodules with FDG avid pleural effusion. Rectal crucially reports positive and left adrenal mass which is FDG avid. Active smoking - 50pack yrs, social alcohol, no drugs Allergies/Medications Allergies: Coded Allergies: No Known Allergies (11/07/17) Home Med list Atorvastatin Calcium 20 MG TABLET 1 TAB PO DAILY CHOLESTEROL (Reported) Enalapril Maleate 20 MG TABLET 1 TAB PO DAILY BP (Reported) Fluoxetine HCl 20 MG CAPSULE 1 CAP PO DAILY MENTAL HEALTH (Reported) Gabapentin 300 MG CAPSULE 1 CAP PO QPM UNKNOWN (Reported) Compliance With Home Meds: GOOD Past History Travel History Traveled to [place] past 21 day No Medical History Neurological: NONE EENT: NONE Cardiovascular: NONE Respiratory: LUNG CA Gastrointestinal: NONE Hepatic: NONE Renal: NONE Musculoskeletal: NONE Psychiatric: NONE Endocrine: NONE Cancer(s): lung cancer Surgical History Surgical History: non-contributory Past Family/Social History Family History Relations & Conditions if any Relation not specified for: *No pertinent family history Psychosocial History Where do you live? Home Who Do You Live With? spouse Services at Home: None Functional Ability ADLs Independent: dressing, eating, toileting, bathing. Ambulation: independent IADLs Needs Assist: shopping, housework, finances, food prep, telephone, transportation, medication admin. Review of Systems Review of Systems Constitutional: Reports: see HPI. Exam & Diagnostic Data Last 24 Hrs of Vital Signs/I&O Vital Signs Date Time Temp Pulse Resp B/P B/P Pulse O2 O2 Flow FiO2 Mean Ox Delivery Rate 12/18 1606 98.3 87 14 92/44 93 Room Air 12/18 1539 92 Room Air 12/18 1341 97.0 91 18 74/50 92 Room Air Intake & Output 12/18 1600 12/18 0800 12/18 0000 Intake Total 1000 Output Total Balance 1000 Intake, IV 1000 Physical Exam General Appearance Alert, Oriented X3, Cooperative, Mild Distress Skin No Rashes, No Breakdown Skin Temp/Moisture Exam: Warm/Dry HEENT Atraumatic, PERRLA, EOMI Neck Supple Cardiovascular Normal S1, Normal S2, No Murmurs Lungs Clear to Auscultation, Normal Air Movement Abdomen Normal Bowel Sounds, Soft, No Tenderness Neurological Normal Gait, Normal Speech, Strength at 5/5 X4 Ext, Normal Tone, Sensation Intact Extremities No Cyanosis, No Edema, clubbing in her bilateral upper extremities, great toes of lower extremities Vascular Normal Pulses Last 24 Hrs of Labs/Camilo: Laboratory Tests 12/18/17 1805: Lactic Acid 4.9 H 12/18/17 1314: Anion Gap 17 H, Estimated GFR > 60, BUN/Creatinine Ratio 24.4, Glucose 133 H, Lactic Acid 5.6 H, Calcium 9.5, Total Bilirubin 1.0, AST 50 H, ALT 30, Alkaline Phosphatase 88, Troponin I 0.03, Total Protein 7.1, Albumin 3.6, Globulin 3.5, Albumin/Globulin Ratio 1.0 L, TSH Pending, Free T4 1.80, Cortisol PM Sample Pending, CBC w Diff MAN DIFF ORDERED, RBC 4.05 L, MCV 77.6 L, MCH 25.3 L, MCHC 32.6 L, RDW 18.9 H, MPV 7.6, Gran % 90.2 H, Lymphocytes % 4.5 L, Monocytes % 5.1, Eosinophils % 0.1, Basophils % 0.1, Absolute Granulocytes 16.8 H, Segmented Neutrophils 89 H, Absolute Lymphocytes 0.8 L, Lymphocytes 3 L, Monocytes 6, Absolute Monocytes 1.0 H, Eosinophils 1, Absolute Eosinophils 0, Basophils 1, Absolute Basophils 0, Platelet Estimate VERIFIED BY SMEAR, Normochromic RBCs VERIFIED, Anisocytosis 1+, Fld Total RBCs Counted 100 Microbiology 12/18 1902 URINE ROUT: Urine Culture - COLB 12/19 1851 STOOL: Ova and Parasite Macroscopic Exam - COLB 12/19 1851 STOOL: Stool Culture - COLB 12/18 1814 BLOOD: Blood Culture - RECD 12/18 1804 BLOOD: Blood Culture - RECD Diagnostic Data EKG Results NSR with ST depressions in precordial leads. Other Results 1. No acute osseous abnormality. 2. The multiple pleural-based lesions in the right hemithorax have increased slightly in size since prior CT studies. 3. There are additional lung nodules in the left lung and right lung, which have not changed substantially since prior CT scan. 4.. Martinez-emphysematous lucency of lung. 5. Shotty subcentimeter lymph nodes in the mediastinum. No bulky lymphadenopathy. 6. Stable bilateral adrenal masses. Assessment/Plan Assessment: Patient is a 67-year-old female with recently diagnosed metastatic lung cancer with right-sided pleural effusion, left adrenal metastasis, the patient presented to [facility] after having a mechanical FALL. She did have a single episode of diarrhea prior to presentation. She has been losing weight with poor per oral intake lately. Vital signs at presentation are significant for afebrile, heart rate 7091, blood pressure 74/50 mmHg improved to 102/60 mmHg after 3 L of bolus. Physical examination did show decreased breath sounds in the right lung base, significant clubbing in the upper extremities. Abdomen is nontender to palpation. Labs did show white count of 18.6 with left shift, microcytic anemia, BUN 22 creatinine 0.9, lactic acid 5.6 improved to 4.6 after 2 L. AST/ALT of 50/30. Blood cultures were sent. CT scan did show multiple protestations of the right hemithorax with increased size of nodules compared to October 2017, diffuse emphysema, adrenal masses. Differential Profound hypotension in the setting of adrenal insufficiency vs sepsis of unknown origin vs acute gastroenteritis. Problem list 1. Hypotensive shock 2. Metastatic Non small cell Lung cancer 3. Diffuse ST depressions on precordial leads 4. H/O depression 5. H/O cervical disc problems 6. H/O HTN Plan Admit to telemetry floor Hypotensive shock Adrenal insufficinecy vs sepsis of unknown source vs acute gastroenteritis * check random cortisol, TSH, free T4 * Aggressive hydration * Blood cultures, urine cultures, Ova and parasites * Received a single dose of antibiotics -- will hold off for now * CT abdomen and pelvis with IV contrast * Trend lactic acid * Monitor urine output * Check orthostatics * Consult EKG changes Pleuritic baseline chest pain, no cardiac related pain. Asymptomatic. Hypotensive. EKG shows NSR with diffuse ST depressions on precordial leads V2 to V6. No significant cardiac history except for HTN. Trop of 0.08 initially. * serial EKG and trop * ECHO * Consult cardio Metastatic Non small cell Lung cancer Pathology had necrosis, concern for squamous cell cancer. Smoked for 50 pack yrs , sill smoker 1 to 2 per day. Loosing weight and short of breath with even ADLs lately. PET on 10/03/17 did show malignant right pleural effusion, nodules on right side, left adrenal mets. Had cough at baseline. Apparently scheduled for chemo tomorrow (first dose). Currently on pain medications for right sided chest pain, increased lately to oxycontin 15mg BID, oxycodone. * inform * Pain control H/O depression: continue fluoxetine H/O HTN: hold antihypertensives DVT prophylaxis SC lovenox Code status Full code As Ranked By This Provider Problem List: 1. Pleural effusion 2. EKG abnormalities 3. Hypotension Core Measures/Misc (03/12) Acute Coronary Syndrome ACS Diagnosis: No Congestive Heart Failure Congestive Heart Failure Diagnosis No Cerebrovascular Accident CVA/TIA Diagnosis: No VTE (View Protocol) VTE Risk Factors Acute Medical Illness No Mechanical VTE Prophylaxis d/t N/A MechProphylax Ordered No VTE Pharm Prophylaxis d/t NA PharmProphylax ordered Sepsis (View protocol) Sepsis Present: Yes If YES complete Sepsis Event Note If YES complete Sepsis Event Note Resident Review Statement Resident Statement: examined this patient, discussed with internal revenue service agent, agreed with internal revenue service agent, discussed with family, reviewed EMR data (avail), discussed with nursing , discussed with case mgmt, reviewed images, amended to note Other Findings: ABOVE Nikko Araiza 12/19/17 0304: Core Measures/Misc (03/12) Sepsis (View protocol) If YES complete Sepsis Event Note If YES complete Sepsis Event Note Attending MD Review Statement Attending Statement Attending MD Statement: examined this patient, discuss w/resident/PA/NUTRITION SPECIALIST, agreed w/resident/PA/NUTRITION SPECIALIST, discussed with family, reviewed EMR data (avail), reviewed images, amended to note Attending Assessment/Plan: CC: Cramping abdominal pain, one episode of diarrhea and fall PMH: Lung cancer 67-year-old female who was brought in ER by her after a fall. Patient states that she came back from bathroom and was about to sit on a bed, she thought that she reached the edge of the bed but apparently she missed it and she fell on the floor on buttock. She was little confused after the fall as she realized that she was on the floor and not on the bed. At that time she called her to inform. Later he called back to check on her and patient was not answering the call so he rushed home. At that time patient had a large bowel movement. This concerns patient was brought in ER. Patient states that she was feeling abdominal cramping before the fall that's why she went to use the bathroom but she did not have any bowel movement. She just had one episode of loose bowel movement after the fall. Even in ER she went couple of times to bathroom with a crampy feeling in abdomen but did not have bowel movement. These abdominal cramps are of one day duration. She denies any fever, chills, no different food intake, she has decreased appetite and has been trying to drink boost and ensure. She is expected to undergo chemotherapy tomorrow she has rib pain due to her cancer and recently her pain regimen was increased. Vitals: Temperature 97.0, pulse 91, RR 18, blood pressure 74/50 on arrival improved to 102/60, saturating 92% on room air On exam: A O 3, cooperative, no acute distress, neck supple, JVD normal, no lymphadenopathy, mucosa moist, no focal neurological deficit, no dependent edema , no obvious skin rashes or inflammation CVS: S1-S2, RRR. RS: Clear to auscultate bilaterally, decreased air entry on right side. Abdomen: Soft, tender to palpate lower quadrants, no guarding or rigidity or rebound, ND, bowel sounds present. CT chest: 1. No acute osseous abnormality. 2. The multiple pleural-based lesions in the right hemithorax have increased slightly in size since prior CT studies. 3. There are additional lung nodules in the left lung and right lung, which have not changed substantially since prior CT scan. 4.. Martinez-emphysematous lucency of lung. 5. Shotty subcentimeter lymph nodes in the mediastinum. No bulky lymphadenopathy. 6. Stable bilateral adrenal masses. CT abdomen pelvis with IV contrast: 1. Diverticulitis of the distal descending proximal sigmoid colon. 2. Bilateral adrenal masses stable since CAT scan 11/07/2017. 3. Bilateral lung masses. See separate CT of chest report performed today. Assessment and plan 67-year-old female with recently diagnosed lung cancer awaiting chemotherapy tomorrow presented in ER after a fall. Her fall appears mechanical but at the same time she was hypotensive on arrival which may be contributing to the fall and confusion. Patient had cramping abdominal pain and one episode of loose bowel movement, tender to palpate and right and left lower quadrants given her significant leukocytosis and left shift hypotension and lactic acidosis, CT abdomen with IV contrast was obtained which showed findings of diverticulitis which could explain her symptoms. Random cortisol was appropriately elevated, as she has metastases to adrenals, adrenal insufficiency was ruled out. Patient received 4 L normal saline in ER and responded appropriately for blood pressure and lactic acidosis. But patient was found to have ST depression on lateral leads on ECG, probably secondary to demand with hypotension but she benefits telemetry admission for further monitoring as she has extensive smoking history. + Diverticulitis + Severe sepsis secondary to diverticulitis + ST depression probably secondary to demand ischemia + Metastatic lung cancer - Admit to telemetry - Continue normal saline at 100 mL per hour after 4 L bolus - Serial troponins and ECGs - Continuous telemetry monitoring - Continue IV ceftriaxone and Flagyl - Cardiology consult in a.m. - Blood cultures - Trend lactate - Hold antihypertensive medications - UA and urine cultures - Inform patient's oncologist about patient being in hospital - I had extensive discussion about end-of-life wishes. Patient's and patient expressed to be full code but does not want prolonged artificial support. (If patient is not responding appropriately to CPR, he may consider DNR at that time. Patient's was very explicit about this) agreeable for IV pressors if required TTS 30 min
--- NOTE | 2017-12-18 20:59 | CT SCAN REPORT ---
EXAMINATION: CT ABDOMEN AND PELVIS WITH CONTRAST CLINICAL INFORMATION: Presumptive Dx: RULE OUT SOURCE OF SEPSIS, ADRENAL HEMORRHAGE/MASS Signs Symptoms: PROFOUND HYPOTENSION, METASTATIC LUNG CANCER WITH METS COMPARISON: PET/CT exam 10/03/2017 . CTA chest today. TECHNIQUE: Multidetector volumetric imaging was performed of the abdomen and pelvis following IV administration of 95 mL of Optiray 320 intravenous contrast. Sagittal and coronal reformatted images were obtained on the technologist's workstation. DLP: 312.86 mGy-cm FINDINGS: LUNG BASES: See separate report CT of chest performed today. Pleural-based masses again seen at the right lung base. Compressive atelectasis right lung base. Small nodule at the left costophrenic angle. LIVER, GALLBLADDER, AND BILIARY TREE: The liver is normal in size, shape, and attenuation. No focal hepatic lesion or biliary ductal dilatation is present. The gallbladder is unremarkable with no evidence of radiopaque gallstones, gallbladder wall thickening, or obvious pericholecystic inflammatory changes. PANCREAS: Unremarkable. SPLEEN: Unremarkable. ADRENAL GLANDS: Bilateral adrenal masses each measuring about 2.5 cm AP. These are stable in size since 11/07/2017. KIDNEYS AND URETERS: The kidneys are normal in size, shape, and attenuation. No hydronephrosis, hydroureter, or calculi seen. No perinephric stranding. BLADDER: Unremarkable. GASTROINTESTINAL TRACT: There are diverticula of the left colon sigmoid. There is focal bowel wall thickening and pericolonic edema involving the distal descending proximal sigmoid colon consistent with a diverticulitis. There is no bowel obstruction. No bowel perforation. The appendix is normal. The small bowel loops are unremarkable. ABDOMINAL WALL: No significant hernia is appreciated. LYMPH NODES: Normal. VASCULAR: There is atherosclerotic vascular wall calcifications of aorta and iliac arteries without aneurysm. PELVIC VISCERA: Prostate is anteverted. There is no adnexal abnormality. OSSEOUS STRUCTURES: Degenerative spondylosis spine with multilevel disc height narrowing and endplate spurring and facet joint arthrosis. There is a grade 1 anterolisthesis of L4 on L5 due to the facet joint disease. There is no spondylolysis. No suspicious osseous lesion. IMPRESSION: 1. Diverticulitis of the distal descending proximal sigmoid colon. 2. Bilateral adrenal masses stable since CAT scan 11/07/2017. 3. Bilateral lung masses. See separate CT of chest report performed today.
[2017-12-18 22:19] VITALS: BP 156/68
--- NOTE | 2017-12-19 03:06 | Admission Certification ---
Admission Certification Certification Statement - As attending physician, I certify that at the time of - admission, based on clinical presentation, severity of - symptoms, need for further diagnostic testing and - therapeutic interventions, and risk of adverse outcomes - without in-hospital treatment, in my clinical assessment, - this patient requires an acute hospital stay for a minimum - of two nights or longer. I have also considered psychsocial - factors such as support system, advanced age, financial - issues, cognitive issues, and failed out-patient treatments, - past re-admission history, safety of patient, and lack of - compliance as applicable. Specific rationale supporting this admission is: Severe sepsis secondary to diverticulitis
[2017-12-19 06:39] VITALS: BP 112/60
--- NOTE | 2017-12-19 06:40 | PN- Housestaff ---
Subjective Follow-up For: Diverticulitis Hypotension-resolved Complaints: no complaints Tele-Events Since Last Visit: Normal sinus rhythm heart rate 74 Subjective: Patient seen and examined at bedside. She was sitting comfortably in the chair and having breakfast. She denied abdominal pain, nausea, vomiting, diarrhea. She expressed concern to go home today. Review of Systems Constitutional: Reports: no symptoms. Objective Last 24 Hrs of Vital Signs/I&O Vital Signs Date Time Temp Pulse Resp B/P B/P Pulse O2 O2 Flow FiO2 Mean Ox Delivery Rate 12/19 0800 93 Nasal 2.0L Cannula 12/19 0639 97.8 81 18 112/60 94 Nasal Cannula 12/18 2220 98 Nasal 2.0L Cannula 12/18 2219 97.7 78 18 156/68 90 Room Air 12/18 1910 98.8 82 18 102/60 94 Room Air 12/18 1606 98.3 87 14 92/44 93 Room Air 12/18 1539 92 Room Air Intake & Output 12/19 1600 12/19 0800 12/19 0000 Intake Total 850 1000 Output Total 350 Balance 500 1000 Intake, IV 450 1000 Intake, Oral 400 Output, Urine 350 Patient 144 lb Weight Weight Bed scale Measurement Method Physical Exam General Appearance: Alert, Oriented X3, Cooperative, No Acute Distress Cardiovascular: Regular Rate, Normal S1, Normal S2, No Murmurs Lungs: Clear to Auscultation Abdomen: Soft, No Tenderness, No Hepatospenomegaly Neurological: Normal Speech, Strength at 5/5 X4 Ext, Normal Tone, Sensation Intact Extremities: No Cyanosis, No Edema, Normal Pulses Current Medications: Current Medications Sig/Matt Start time Last Medication Dose Route Stop Time Status Admin Acetaminophen 650 MG Q6P PRN 12/18 1899 DCD PO Atorvastatin Calcium 20 MG DAILY 12/18 1856 DCD 12/19 PO 0824 Azithromycin 500 MG ONCE ONE 12/18 1714 DC 12/18 Sodium Chloride 250 ML IV 12/18 1813 192 Ceftriaxone Sodium 1,000 MG 0 12/19 1899 DCD IV Ceftriaxone Sodium 1,000 MG DAILY 12/19 0200 DC IV Ceftriaxone Sodium 0 .STK-MED ONE 12/18 1748 DC .ROUTE Ceftriaxone Sodium 1,000 MG ONCE ONE 12/18 1714 DC 12/18 IV 12/19 1715 190 Fluoxetine HCl 20 MG DAILY 12/18 1857 DCD 12/19 PO 0824 Gabapentin 300 MG QPM 12/18 2100 DCD 12/18 PO 2115 Gabapentin 0 .STK-MED ONE 12/18 2053 DC PO Heparin Sodium 5,000 UNIT Q8 12/18 2200 DCD 12/19 (Porcine) SC 0610 Ketorolac 0 .STK-MED ONE 12/18 1527 DC Tromethamine .ROUTE Metronidazole 500 MG IQ8 12/19 0200 DCD 12/19 N/A 1 UNIT IV 0825 Oxycodone HCl 15 MG Q12 12/19 0900 DCD 12/19 PO 0830 Oxycodone HCl 10 MG Q6 12/18 2359 DCD 12/19 PO 1219 Oxycodone HCl 0 .STK-MED ONE 12/18 1748 DC PO Oxycodone HCl 10 MG ONCE ONE 12/18 1700 DC 12/18 PO 12/18 1701 1753 Potassium Chloride 40 MEQ ONCE ONE 12/19 1230 DC 12/19 PO 12/19 1231 1224 Sodium Chloride 1,000 ML Q10H 12/18 2014 DC 12/18 IV 2123 Sodium Chloride 1,000 ML BOLUS ONE 12/18 1915 CAN IV 12/18 2014 Sodium Chloride 1,000 ML BOLUS ONE 12/18 1800 DC 12/18 IV 12/18 1859 1927 Sodium Chloride 1,000 ML BOLUS ONE 12/18 1700 DC 12/18 IV 12/18 1759 1737 Sodium Chloride 1,000 ML BOLUS ONE 12/18 1615 DC 12/18 IV 12/18 1714 1619 Last 24 Hrs of Lab/Camilo Results Last 24 Hrs of Labs/Mics: Laboratory Tests 12/19/17 0618: Anion Gap 9, Estimated GFR > 60, BUN/Creatinine Ratio 23.3, Iron 14 L, Vitamin B12 360, Folate 5.1, Cortisol AM Sample 21.2, CBC w Diff NO MAN DIFF REQ, RBC 2.92 L, MCV 78.0 L, MCH 24.9 L, MCHC 32.0 L, RDW 19.0 H, MPV 7.5, Gran % 77.3 H, Lymphocytes % 12.5 L, Monocytes % 9.2, Eosinophils % 0.7, Basophils % 0.3, Absolute Granulocytes 8.3 H, Absolute Lymphocytes 1.3, Absolute Monocytes 1.0 H, Absolute Eosinophils 0.1, Absolute Basophils 0 12/19/17 0230: Urine Opiates Screen 862.00, Methadone Screen < 40, Barbiturate Screen < 60, Ur Phencyclidine Scrn < 6.00, Amphetamines Screen < 100, U Benzodiazepines Scrn < 85, Urine Cocaine Screen < 50, Urine Cannabis Screen 79.30 H, Urinalysis LIGHT H, Urine Color YEL, Urine Clarity CLEAR, Urine pH 6.0, Ur Specific [place] <= 1.005, Urine Protein NEG, Urine Ketones NEG, Urine Nitrite NEG, Urine Bilirubin NEG, Urine Urobilinogen 0.2, Ur Leukocyte Esterase NEG, Ur Microscopic SEDIMENT EXAMINED, Urine RBC 1-3, Urine WBC 3-5 H, Ur Epithelial Cells RARE, Urine Bacteria MOD H, Urine Hemoglobin TRACE-INTACT, Urine Glucose NEG 12/19/17 0220: Troponin I 0.03 12/19/17 0220: Lactic Acid 1.6 12/19/17 0000: Lactic Acid Cancelled 12/18/17 2210: Lactic Acid 2.8 H 12/18/17 2032: Troponin I 0.02 12/18/17 1902: Cortisol AM Sample Cancelled 12/18/17 1805: Lactic Acid 4.9 H Microbiology 12/19 0230 URINE ROUT: Urine Culture - RECD 12/18 1852 STOOL: Ova and Parasite Macroscopic Exam - CAN Cancelled: SPECIMEN NOT RECEIVED IN LABORATORY 12/18 185 STOOL: Stool Culture - CAN Cancelled: SPECIMEN NOT RECEIVED IN LABORATORY 12/18 1815 BLOOD: Blood Culture - RES 12/18 1805 BLOOD: Blood Culture - RES Assessment/Plan Assessment: Patient is a 67-year-old female with recently diagnosed metastatic lung cancer with right-sided pleural effusion, left adrenal metastasis, the patient presented to [place] after having a mechanical FALL. She did have a single episode of diarrhea prior to presentation. 1. Hypotensive shock -resolved which is likely secondary due to diverticulitis 2. Metastatic Non small cell Lung cancer 3. Diffuse ST depressions on precordial leads-likely demand ischemia 4. H/O depression 5. H/O cervical disc problems 6. H/O HTN * Diverticulitis-patient is on ceftriaxone and metronidazole. We will change to p.o. ciprofloxacin and Flagyl. We will discontinue IV fluids. Patient has expressed her wish to go home today despite understanding she needs treatment for her diverticulitis and monitor her vitals. * Metastatic non-small cell lung cancer-patient with follow-up with Dr. Sullivan as outpatient. * Diffuse ST depression-likely demand ischemia. * Patient has decreased hemoglobin of 7.4 likely dilutional, we will repeat CBCs at at 4 PM * Patient was seen by rubber stamp maker who suggested to start her on aspirin 81, echocardiogram and nuclear stress test as outpatient. Problem List: 1. Diverticulitis Pain Ratin Pain Location: none Pain Goal: Remain pain free Pain Plan: tylenol Tomorrow's Labs & Rationales: none
[2017-12-19 07:44] LABS: ABSOLUTE BASOPHIL COUNT 0 /CUMM (0.0-0.2); ABSOLUTE EOSINOPHIL COUNT 0.1 /CUMM (0.0-0.7); ABSOLUTE GRANULOCYTE CT 8.3 /CUMM (1.4-6.5); ABSOLUTE LYMPH COUNT 1.3 /CUMM (1.2-3.4); BASOPHIL % 0.3 % (0.0-2.0); EOSINOPHIL % 0.7 % (0-5); GRANULOCYTE % 77.3 % (42.2-75.2); MEAN CORPUSCULAR HGB 24.9 PG (27.0-31.0); MEAN PLATELET VOLUME 7.5 FL (7.4-10.4); PLATELET COUNT 239 /CUMM (130-400); WHITE BLOOD CELL COUNT 10.7 /CUMM (4.8-10.8)
[2017-12-19 08:01] LABS: HEMATOCRIT 22.8 % (37-47); RED BLOOD CELL CT 2.92 /CUMM (4.20-5.40)
--- NOTE | 2017-12-19 08:34 | Sepsis Event Note ---
Sepsis Event Note Severe Sepsis Severe Sepsis Present: Yes Severe Sepsis Actions Taken: Blood Cultures x2, Lactic Acid x2, IV Broad Spectrum Abx, IV Fluids- NS or LR Septic Shock Septic Shock Present: No Septic Shock Actions Taken: Blood Cultures x2, Lactic Acid, IV Broad Spectrum Abx, Focused Exam, IV Fluids NS/LR 30ml/kg Event Note Event Note: Patient is a 67 YO F with metastatic NSCLC presented with diarrhea, crampy abdominal pain. She had diverticulitis evident on CT scan, profoundly hypotensive with lactic acidosis. She received 4L of fluids and her Blood pressure improved and she was continued on NS @ 100ml/hr. No organ failure, normal renal function. ST depressions evident on EKG. Started on IV ceftriaxone and flagyl for diverticulitis. Sepsis secondary to diverticulitis. Sepsis Focused Exam Sepsis Cardiac Exam: Regular Rate/Rhythm Sepsis Resp Exam: none Sepsis Cap Refill Exam: >2 sec Sepsis Peripheral Pulse Exam: Bounding Sepsis Peripheral Pulse Location: Dorsalis Pedis Sepsis Skin Exam (color): Normal for Ethnicity Skin Temp/Moisture Exam: Warm/Dry
--- NOTE | 2017-12-19 10:54 | Patient Discharge Instructions ---
Discharge Instructions General Discharge Information You were seen/treated for: Diverticulitis Watch for these problems: In case of nausea, vomiting, abdominal pain, dizziness please go to the nearest emergency room Special Instructions: Please follow-up with your primary care provider/oncologist/ cardologist within 1-2 weeks of discharge and let them know about your recent admission to the hospital You are leaving against medical advice, please seek immediate medical attention if you develop any chest pain, increased shortness of breath, or abdominal pain. please f/u for stress test with cardiology Diet Continue normal diet: Yes Activity Full Activity/No Limits: No Activity Self Limited: Yes Acute Coronary Syndrome Inclusion Criteria At DC or during hospital stay patient has or had the following: ACS DIAGNOSIS No Discharge Core Measures Meds if any: Prescribed or Continued at Discharge Meds if any: NOT Prescribed or Continued at Discharge Congestive Heart Failure Inclusion Criteria At DC or during hospital stay patient has or had the following: CHF DIAGNOSIS No Discharge Core Measures Meds if any: Prescribed or Continued at Discharge Meds if any: NOT Prescribed or Continued at Discharge Cerebrovascular accident Inclusion Criteria At DC or during hospital stay patient has or had the following: CVA/TIA Diagnosis No Discharge Core Measures Meds if any: Prescribed or Continued at Discharge Meds if any: NOT Prescribed or Continued at Discharge Venous thromboembolism Inclusion Criteria VTE Diagnosis No VTE Type NONE VTE Confirmed by (Test) NONE Discharge Core Measures - Per Current guidelines, there needs to be overlap - treatment for the first 5 days of Warfarin therapy. - If discharged on Warfarin prior to 5 days of - overlap therapy, the patient will need to be - assessed for post discharge needs including - *Post discharge parental anticoagulation - *Warfarin and/or parental anticoagulation education - *Follow up date to check INR post discharge At least 5 days overlap therapy as Inpatient No Meds if any: Prescribed or Continued at Discharge Note: Overlap Therapy is Warfarin and Anticoagulant Meds if any: NOT Prescribed or Continued at Discharge
[2017-12-19] MEDS ORDERED: FLAGYL500 MG PO ×2 (11:06→14:52)
[2017-12-19] MEDS ORDERED: CIPRO500 M1 PO (11:06)
--- NOTE | 2017-12-19 11:29 | Cons- Cardiology ---
General Information and HPI Consulting Request Date of Consult: 12/19/17 Requested By: Elder Merritt MD Reason for Consult: syncope Source of Information: patient, family History of Present Illness: Patient actively followed by oncology for right sided NSCLC, not candidate for surgical resection, awaiting chemotherapy (has not undergone her first round yet ). Brought to the ED yesterday by her , after falling while attempting to sit on the edge of her bed. She does not recall how she fell, but says she likely missed the edge of the bed, as she has been sedated for severe pain in the right hemithorax due to her cancer. Has been complaining of abdominal pain, and has history of diverticulitis. Upon arrival to the ED, BP was low 79/55 mmHg, patient was lethargic, found to have diverticulitis. She was also quite dehydrated, as she has not been eating or drinking adequately due to pain. Dynamic ST-T changes in the anterolateral leads could be observed on her EKG, especially visible when HR>80 bpm, however patient's chest pain has remained the pleuritic/msk right sided pain, reproducible with palpation and deep inspiration. Troponins have been negative. Patient started on IV fluids and ceftriaxone. Allergies/Medications Allergies: Coded Allergies: No Known Allergies (11/07/17) Home Med List: Atorvastatin Calcium 20 MG TABLET 1 TAB PO DAILY CHOLESTEROL (Reported) Ciprofloxacin HCl (Cipro) 500 MG TABLET 1 TAB PO BID DIVERTICULITIS Enalapril Maleate 20 MG TABLET 1 TAB PO DAILY BP (Reported) Fluoxetine HCl 20 MG CAPSULE 1 CAP PO DAILY MENTAL HEALTH (Reported) Gabapentin 300 MG CAPSULE 1 CAP PO QPM UNKNOWN (Reported) Metronidazole (Flagyl) 500 MG TABLET 1 TAB PO BID DIVERTICULITIS Current Medications: Current Medications Sig/Matt Start time Last Medication Dose Route Stop Time Status Admin Acetaminophen 650 MG Q6P PRN 12/18 1900 AC PO Atorvastatin Calcium 20 MG DAILY 12/18 1857 AC 12/19 PO 0824 Azithromycin 500 MG ONCE ONE 12/18 1714 DC 12/18 Sodium Chloride 250 ML IV 12/18 181 192 Ceftriaxone Sodium 1,000 MG 1900 12/19 1900 AC IV Ceftriaxone Sodium 1,000 MG DAILY 12/19 0200 DC IV Ceftriaxone Sodium 0 .STK-MED ONE 12/18 1748 DC .ROUTE Ceftriaxone Sodium 1,000 MG ONCE ONE 12/18 1714 DC 12/18 IV 12/18 1716 1903 Fluoxetine HCl 20 MG DAILY 12/18 1858 AC 12/19 PO 0824 Gabapentin 300 MG QPM 12/18 2100 AC 12/18 PO 2115 Gabapentin 0 .STK-MED ONE 12/18 2053 DC PO Heparin Sodium 5,000 UNIT Q8 12/18 2200 AC 12/19 (Porcine) SC 0610 Ketorolac 0 .STK-MED ONE 12/18 1527 DC Tromethamine .ROUTE Ketorolac 15 MG ONCE ONE 12/18 1415 DC 12/18 Tromethamine IV 12/18 1416 1537 Metronidazole 500 MG IQ8 12/19 0200 AC 12/19 N/A 1 UNIT IV 0825 Oxycodone HCl 15 MG Q12 12/19 0900 AC 12/19 PO 0830 Oxycodone HCl 10 MG Q6 12/18 2359 AC 12/19 PO 1219 Oxycodone HCl 0 .STK-MED ONE 12/18 1748 DC PO Oxycodone HCl 10 MG ONCE ONE 12/18 1700 DC 12/18 PO 12/18 1701 1753 Potassium Chloride 40 MEQ ONCE ONE 12/19 1230 DC 12/19 PO 12/19 1231 1224 Sodium Chloride 1,000 ML Q10H 12/18 2015 DC 12/18 IV 2123 Sodium Chloride 1,000 ML BOLUS ONE 12/18 1915 CAN IV 12/18 2014 Sodium Chloride 1,000 ML BOLUS ONE 12/18 1800 DC 12/18 IV 12/18 1859 1927 Sodium Chloride 1,000 ML BOLUS ONE 12/18 1700 DC 12/18 IV 12/18 1759 1737 Sodium Chloride 1,000 ML BOLUS ONE 12/18 1615 DC 12/18 IV 12/18 1714 1619 Sodium Chloride 1,000 ML BOLUS ONE 12/18 1400 DC 12/18 IV 12/18 1459 1521 Review of Systems Review of Systems Constitutional: Reports: malaise, weakness. EENTM: Denies: no symptoms, blurred vision, double vision, visual changes, hearing changes, epistaxis. Cardiovascular: Reports: syncope. Denies: see HPI, edema, orthopena, palpitations. Respiratory: Reports: see HPI. Denies: hemoptysis, stridor, wheezing. GI: Reports: constipation, distention, nausea. Denies: abdominal pain, bloating, diarrhea, bowel incontinence, melena, bloody stool. Genitourinary: Denies: dysuria, hematuria, pain. Musculoskeletal: Denies: muscle pain, muscle stiffness. Neurological/Psychological: Reports: anxiety, depressed, emotional problems. Past History Travel History Traveled to [place] past 21 day No Medical History Blood Transfusion Hx: No Neurological: NONE EENT: NONE Cardiovascular: NONE Respiratory: LUNG CA Gastrointestinal: NONE Hepatic: NONE Renal: NONE Musculoskeletal: NONE Psychiatric: NONE Endocrine: NONE Cancer(s): lung cancer Surgical History Surgical History: non-contributory Family History Relations & Conditions If Any: Relation not specified for: *No pertinent family history Psychosocial History Where Do You Live? Home Who Do You Live With? spouse Services at Home: None Smoking Status: Former Smoker Functional Ability ADLs Independent: dressing, eating, toileting, bathing. Ambulation: independent IADLs Needs Assist: shopping, housework, finances, food prep, telephone, transportation, medication admin. Exam & Diagnostic Data Vital Signs and I&O Vital Signs Date Time Temp Pulse Resp B/P B/P Pulse O2 O2 Flow FiO2 Mean Ox Delivery Rate 12/19 0800 93 Nasal 2.0L Cannula 12/19 0639 97.8 81 18 112/60 94 Nasal Cannula 12/18 2220 98 Nasal 2.0L Cannula 12/18 2219 97.7 78 18 156/68 90 Room Air 12/18 1910 98.8 82 18 102/60 94 Room Air 12/18 1606 98.3 87 14 92/44 93 Room Air 12/18 1539 92 Room Air 12/18 1341 97.0 91 18 74/50 92 Room Air Intake & Output 12/19 1600 12/19 0800 12/19 0000 12/18 1600 12/18 0800 12/18 0000 Intake Total 850 1000 1000 Output Total 350 Balance 500 1000 1000 Intake, IV 450 1000 1000 Intake, Oral 400 Output, Urine 350 Patient 144 lb Weight Weight Bed scale Measurement Method Physical Exam General Appearance: awake, anxious, lethargic, mild distress Head: atraumatic, normal appearance Eyes: Bilateral: normal appearance, PERRL, EOMI, pale conjunctivae. Ears, Nose, Throat: normal pharynx, normal ENT inspection Neck: normal inspection, supple, trachea mid line Respiratory: no respiratory distress (crackles right base>left), quiet respiration Cardiovascular: regular rate/rhythm (absence of murmur/rub) Gastrointestinal: normal bowel sounds, soft, non-tender Extremities: normal capillary refill, no edema Neurologic/Psych: alert, oriented x 3, depressed affect Labs/Camiol Results: Laboratory Tests 12/19 12/19 0618 0230 Chemistry Sodium (137 - 145 mmol/L) 139 Potassium (3.5 - 5.1 mmol/L) 3.3 L Chloride (98 - 107 mmol/L) 107 Carbon Dioxide (22 - 30 mmol/L) 23 Anion Gap (5 - 16) 9 BUN (7 - 17 mg/dL) 14 Creatinine (0.5 - 1.0 mg/dL) 0.6 Estimated GFR (>60 ml/min) > 60 BUN/Creatinine Ratio (7 - 25 %) 23.3 Iron (37 - 170 ug/dL) 14 L Vitamin B12 (239 - 931 pg/mL) Pending Folate (2.76 - 20.0 ng/mL) Pending Cortisol AM Sample (4.46 - 22.7 ug/dL) 21.2 Hematology CBC w Diff NO MAN DIFF REQ WBC (4.8 - 10.8 /CUMM) 10.7 RBC (4.20 - 5.40 /CUMM) 2.92 L Hgb (12.0 - 16.0 G/DL) 7.3 *L Hct (37 - 47 %) 22.8 L MCV (81.0 - 99.0 FL) 78.0 L MCH (27.0 - 31.0 PG) 24.9 L MCHC (33.0 - 37.0 G/DL) 32.0 L RDW (11.5 - 14.5 %) 19.0 H Plt Count (130 - 400 /CUMM) 239 MPV (7.4 - 10.4 FL) 7.5 Gran % (42.2 - 75.2 %) 77.3 H Lymphocytes % (20.5 - 51.1 %) 12.5 L Monocytes % (1.7 - 9.3 %) 9.2 Eosinophils % (0 - 5 %) 0.7 Basophils % (0.0 - 2.0 %) 0.3 Absolute Granulocytes (1.4 - 6.5 /CUMM) 8.3 H Absolute Lymphocytes (1.2 - 3.4 /CUMM) 1.3 Absolute Monocytes (0.10 - 0.60 /CUMM) 1.0 H Absolute Eosinophils (0.0 - 0.7 /CUMM) 0.1 Absolute Basophils (0.0 - 0.2 /CUMM) 0 Toxicology Urine Opiates Screen (>2000 NG/ML) 862.00 Methadone Screen (>300 NG/ML) < 40 Barbiturate Screen (>200 NG/ML) < 60 Ur Phencyclidine Scrn (>25 NG/ML) < 6.00 Amphetamines Screen (>1000 NG/ML) < 100 U Benzodiazepines Scrn (>200 NG/ML) < 85 Urine Cocaine Screen (>300 NG/ML) < 50 Urine Cannabis Screen (>50 NG/ML) 79.30 H Urines Urinalysis LIGHT H Urine Color (YEL,AMB,STR) YEL Urine Clarity (CLEAR) CLEAR Urine pH (5.0 - 8.0) 6.0 Ur Specific [place] (1.001 - 1.035) <= 1.005 Urine Protein (NEG,<30 MG/DL) NEG Urine Ketones (NEG) NEG Urine Nitrite (NEG) NEG Urine Bilirubin (NEG) NEG Urine Urobilinogen (0.1 - 1.0 EU/dl) 0.2 Ur Leukocyte Esterase (NEG) NEG Ur Microscopic SEDIMENT EXAMINED Urine RBC (0 - 5 /HPF) 1-3 Urine WBC (0 - 2 /HPF) 3-5 H Ur Epithelial Cells (NONE,FEW) RARE Urine Bacteria (NEG/NONE) MOD H Urine Hemoglobin (NEG) TRACE-INTACT Urine Glucose (N MG/DL) NEG 12/19 12/19 12/19 12/18 12/18 0220 0220 0000 2210 2031 Chemistry Lactic Acid (0.7 - 2.1 mmol/L) 1.6 Cancelled 2.8 H Troponin I (< 0.11 ng/ml) 0.03 0.02 12/18 12/18 12/18 1902 1805 1314 Chemistry Sodium (137 - 145 mmol/L) 138 Potassium (3.5 - 5.1 mmol/L) 3.5 Chloride (98 - 107 mmol/L) 94 L Carbon Dioxide (22 - 30 mmol/L) 27 Anion Gap (5 - 16) 17 H BUN (7 - 17 mg/dL) 22 H Creatinine (0.5 - 1.0 mg/dL) 0.9 Estimated GFR (>60 ml/min) > 60 BUN/Creatinine Ratio (7 - 25 %) 24.4 Glucose (65 - 99 mg/dL) 133 H Lactic Acid (0.7 - 2.1 mmol/L) 4.9 H 5.6 H Calcium (8.4 - 10.2 mg/dL) 9.5 Total Bilirubin (0.2 - 1.3 mg/dL) 1.0 AST (14 - 36 U/L) 50 H ALT (9 - 52 U/L) 30 Alkaline Phosphatase (<127 U/L) 88 Troponin I (< 0.11 ng/ml) 0.03 Total Protein (6.3 - 8.2 g/dL) 7.1 Albumin (3.5 - 5.0 g/dL) 3.6 Globulin (1.9 - 4.2 gm/dL) 3.5 Albumin/Globulin Ratio (1.1 - 2.2 %) 1.0 L TSH (0.270 - 4.200 uIU/mL) 3.100 Free T4 (0.78 - 2.44 ng/dL) 1.80 Cortisol AM Sample Cancelled Cortisol PM Sample (1.7 - 14.1) 78.3 H Hematology CBC w Diff MAN DIFF ORDERED WBC (4.8 - 10.8 /CUMM) 18.6 H RBC (4.20 - 5.40 /CUMM) 4.05 L Hgb (12.0 - 16.0 G/DL) 10.3 L Hct (37 - 47 %) 31.4 L MCV (81.0 - 99.0 FL) 77.6 L MCH (27.0 - 31.0 PG) 25.3 L MCHC (33.0 - 37.0 G/DL) 32.6 L RDW (11.5 - 14.5 %) 18.9 H Plt Count (130 - 400 /CUMM) 350 MPV (7.4 - 10.4 FL) 7.6 Gran % (42.2 - 75.2 %) 90.2 H Lymphocytes % (20.5 - 51.1 %) 4.5 L Monocytes % (1.7 - 9.3 %) 5.1 Eosinophils % (0 - 5 %) 0.1 Basophils % (0.0 - 2.0 %) 0.1 Absolute Granulocytes (1.4 - 6.5 /CUMM) 16.8 H Segmented Neutrophils (42.2 - 75.2 %) 89 H Absolute Lymphocytes (1.2 - 3.4 /CUMM) 0.8 L Lymphocytes (20.5 - 51.1 %) 3 L Monocytes (1.7 - 9.3 %) 6 Absolute Monocytes (0.10 - 0.60 /CUMM) 1.0 H Eosinophils (0 - 5.0 %) 1 Absolute Eosinophils (0.0 - 0.7 /CUMM) 0 Basophils (0.0 - 2.0 %) 1 Absolute Basophils (0.0 - 0.2 /CUMM) 0 Platelet Estimate (ADEQUATE) VERIFIED BY SMEAR Normochromic RBCs VERIFIED Anisocytosis 1+ Other Body Source Fld Total RBCs Counted (%) 100 Assessment/Plan Assessment/Plan 67 year old patient awaiting palliative chemotherapy for advanced lung cancer. Syncope secondary to acute diverticulitis as well as combination of sedative medication/dehydration/hypotension. Dynamic changes in anterolateral leads on EKG; given that patient is scheduled to undergo chemotherapy with a life expectancy > 6 months at the moment it appears, i would quantify the extent of ischemia with a nuclear stress test, such that if a large territory is affected by ischemia and might therefore jeoporpize the patient's chances of successfully receiving the planned chemo, revascularization by PCI would be considered. Patient and are in agreement. I would do an echocardiogram as well as a nuclear stress test, which could both be performed as outpatient if patient is eager to leave, given that she has been quite stable otherwise during her stay. I would begin ASA 81 mg daily. No betablocker given her BP. Consult Acknowledgment - Thank you for your consult request.
[2017-12-19] MEDS ORDERED: ASPIRIN81 M4 PO (14:44)
--- NOTE | 2017-12-19 14:48 | Event Note ---
Event Note Event Note: Patient had ST changes in the anterolateral leads on her EKG upon admission. Hence cardiology was consulted. Patient was seen by cardiology who suggested pharmacological stress test and echocardiogram. Patient got anxious about further investigations and decided to leave AGAINST MEDICAL ADVICE. Despite explaining the risk, including worsening illness, chronic pain, permanent disability and , patient decided to leave. Patient had full capacity to decide about her medical condition and treatment. Patient went home without signing the AGAINST MEDICAL ADVICE papers. We suggested to follow-up with cardiology for echocardiogram and pharmacological stress test as soon as possible. If there is any worsening chest pain, palpitation, abdominal pain nausea, diarrhea she was advised to go to the emergency room as soon as possible.
--- NOTE | 2017-12-19 15:20 | Discharge Summary ---
Visit Information Visit Dates Admission Date: 12/18/17 Discharge Date: 12/19/17 Hospital Course Course Attending Physician: Elder Merritt MD Primary Care Physician: Carolann Owen Hospital Course: Patient 67-year-old female with past medical history significant for recently diagnosed metastatic non-small cell lung cancer, hypertension, cervical myelomalacia, depression presented to [facility] after having a mechanical fall. Patient apparently went to the restroom on the day of admission around noon, when coming back she tried to sit on her bed and fell down. She denies any nausea vomiting, lightheadedness prior to her fall, thought to be close enough to sit unfortunately fell down due to less proximately. She didn't have any confusion/convulsive movements during the fall. She called her who reached home from his workplace. She found to be in restroom having an episode of diarrhea. They presented to ER subsequently for further evaluation. She recently ate these of the soft reports that on Monday. On the day of admission she had single episode of diarrhea, otherwise no urinary symptoms, no incrase in cough from baseline, no fevers, chest pain. She did have crampy abdominal pain. For the past few months patient has been having decreased oral intake and significant weight loss. She was able to do her activities of daily living like walking talking although short of breath with these activities. She recently had a chest x-ray in August which did show pleural effusion which was further evaluated by CT scan of chest she was referred to Dr. Campos for further evaluation underwent a PET scan which did show malignancy in the right lung nodules with FDG avid pleural effusion. Rectal crucially reports positive and left adrenal mass which is FDG avid. Active smoking - 50pack yrs, social alcohol, no drugs Hospital course Sepsis secondary to diverticulitis EKG-showing ST segment changes in the anterolateral leads. Metastatic non-small cell lung cancer Patient upon admission had hypotension, was treated with 4 L of IV fluids. Patient had one episode of diarrhea and hence CAT scan of the abdomen was done which showed diverticulitis. Patient was treated with ceftriaxone and metronidazole IV and later switched to Cipro and metronidazole. Patient in total had 2 episodes of diarrhea. In view of his EKG changes cardiology was consulted. Patient was seen by puff ironer who suggested echocardiogram and nuclear stress test to quantify the extent of ischemia. But the patient refused for any further testing and left hospital AGAINST MEDICAL ADVICE. Patient had full capacity to decide about her medical condition and treatment. The risks have been explained to the patient, including worsening illness, chronic pain, permanent disability and . Patient went home without signing the AGAINST MEDICAL ADVICE paperwork. Patient advised to follow-up with oncologist, puff ironer [for echocardiogram and pharmacological stress test] and follow-up with her primary care physician soon. If any chest pain, palpitation, nausea, vomiting, abdominal pain, diarrhea patient advised to visit the emergency room. Allergies: Coded Allergies: No Known Allergies (11/07/17) Pertinent Lab Results: CT abdomen and pelvis 1. Diverticulitis of the distal descending proximal sigmoid colon. 2. Bilateral adrenal masses stable since CAT scan 11/07/2017. 3. Bilateral lung masses. See separate CT of chest report performed today. Chest CT 1. No acute osseous abnormality. 2. The multiple pleural-based lesions in the right hemithorax have increased slightly in size since prior CT studies. 3. There are additional lung nodules in the left lung and right lung, which have not changed substantially since prior CT scan. 4.. Martinez-emphysematous lucency of lung. 5. Shotty subcentimeter lymph nodes in the mediastinum. No bulky lymphadenopathy. 6. Stable bilateral adrenal masses. Disposition Summary Disposition Principal Diagnosis: Sepsis secondary to diverticulitis-resolved Additional Diagnosis: EKG-ST segment changes need further evaluation. Discharge Disposition: home or self care Discharge Instructions General Discharge Information Code Status: Full Code Patient's Diet: Heart healthy diet Patient's Activity: As tolerated Follow-Up Instructions/Appts: Please follow-up with primary care physician/oncologist/puff ironer within 1-2 weeks of discharge. Medications at Discharge Discharge Medications: Continue taking these medications: Enalapril Maleate (Enalapril Maleate) 20 MG TABLET 1 Tablet ORAL DAILY Qty = 30 Atorvastatin Calcium (Atorvastatin Calcium) 20 MG TABLET 1 Tablet ORAL DAILY Qty = 30 Fluoxetine HCl (Fluoxetine HCl) 20 MG CAPSULE 1 Capsule ORAL DAILY Qty = 60 Gabapentin (Gabapentin) 300 MG CAPSULE 1 Capsule ORAL Every night Qty = 90 Start taking the following new medications: Metronidazole (Flagyl) 500 MG TABLET 1 Tablet ORAL EVERY 8 HOURS Qty = 18 No Refills Ciprofloxacin HCl (Cipro) 500 MG TABLET 1 Tablet ORAL TWICE DAILY Qty = 12 No Refills Aspirin (Aspirin*) 81 MG TAB.CHEW 1 Tablet ORAL DAILY Qty = 30 No Refills Copies To: [place] ALVARENGA,Epi; Ad NASH,Carolann Pena; Ana María ALVARENGA,Yariel Weems
[2017-12-20] MEDS ORDERED: OXYCODONE HCL5 M1 PO (05:51)
[2017-12-20] MEDS ORDERED: XTAMPZA ER18 MG (05:51)
== END 2017-12-19 14:58 | disposition left against medical advice (07) | DRG 872 ==
LOC: ERH 13:22 → 1NO 17:50 → ERHI 17:50 → ENRESERV 17:59 → 1NO 21:02 → ERHI 21:11 → ENTRNSPT 21:17 → EDTRNSPT 21:22 → EDTRNSPTSTS 21:22 → 1NO 21:37 → CMPTRNSPT 21:44 → 1NO 12-19 08:32 → ENPENDDIS 12-19 14:37 → 1NO 12-19 14:58
PROVIDERS: Internal Medicine; Physician Assistant
DX: A41.9 Sepsis, unspecified organism (principal); K57.32 Diverticulitis of large intestine without perforation or abscess without bleeding; C34.91 Malignant neoplasm of unspecified part of right bronchus or lung; C79.70 Secondary malignant neoplasm of unspecified adrenal gland; E87.2 Acidosis; G95.89 Other specified diseases of spinal cord; I24.8 Other forms of acute ischemic heart disease; I10 Essential (primary) hypertension; E78.5 Hyperlipidemia, unspecified; R94.31 Abnormal electrocardiogram [ECG] [EKG]; I95.9 Hypotension, unspecified; D50.9 Iron deficiency anemia, unspecified; F32.9 Major depressive disorder, single episode, unspecified; W06.XXXA Fall from bed, initial encounter; Y92.003 Bedroom of unspecified non-institutional (private) residence as the place of occurrence of the external cause; E86.0 Dehydration; Z53.21 Procedure and treatment not carried out due to patient leaving prior to being seen by health care provider
CPT/HCPCS: 1NP; 36592; 74177; 80307; 81001; 82436; 87015; 87040; 87045; 87086; 87899; 87899-59; 93005; 93010; 97116-GO; 97161-GP; J0456; J0696; J1644; J1885; J7040

== ENCOUNTER 2017-12-20 05:25 | Emergency (ER) | payer OTHER ==
[~2017-12-20] VITALS: Ht 162.6 cm; Wt 59.0 kg
[~2017-12-20 05:25] MED LIST changes: +ASPIRIN81 M4 PO; +CIPRO500 M1 PO; +FLAGYL500 MG PO
--- NOTE | 2017-12-20 05:38 | ED CARDIAC/CP/PALPITATIONS ---
See Addendum History of Present Illness General Chief Complaint: Dyspnea (COPD, CHF, Other) Stated Complaint: BIBA DIFF BREATHING Source: patient, family, old records, EMS Exam Limitations: no limitations Vital Signs & Intake/Output Vital Signs & Intake/Output Vital Signs Date Time Temp Pulse Resp B/P B/P Pulse O2 O2 Flow FiO2 Mean Ox Delivery Rate 12/20 0548 80 Room Air 12/20 0533 97.0 77 24 139/67 94 Part 60% ReBreather Allergies Coded Allergies: No Known Allergies (11/07/17) Reconcile Medications Aspirin (Aspirin*) 81 MG TAB.CHEW 1 TAB PO DAILY HEART Atorvastatin Calcium 20 MG TABLET 1 TAB PO DAILY CHOLESTEROL (Reported) Ciprofloxacin HCl (Cipro) 500 MG TABLET 1 TAB PO BID DIVERTICULITIS Enalapril Maleate 20 MG TABLET 1 TAB PO DAILY BP (Reported) Fluoxetine HCl 20 MG CAPSULE 1 CAP PO DAILY MENTAL HEALTH (Reported) Gabapentin 300 MG CAPSULE 1 CAP PO QPM UNKNOWN (Reported) Metronidazole (Flagyl) 500 MG TABLET 1 TAB PO Q8 diverticulitis Oxycodone HCl 5 MG TABLET 1 TAB PO BIDP PRN PATIENT CONTROLLED ANALGESIA ( Reported) Oxycodone Myristate (Xtampza ER) 18 MG CAP.SPR.12 PAIN CONTROL (Reported) Triage Nurses Notes Reviewed? yes HPI: Patient was admitted to the hospital yesterday for chest pain and ischemic EKG changes. Prior to completing the workup the patient and her decided to leave AGAINST MEDICAL ADVICE. This morning she woke her up stating that she couldn't breathe and was having chest pain. Upon EMS arrival patient's oxygen saturation was 80% with rales in all lung damon. Patient was placed on CPAP and received a sublingual nitroglycerin as well as an inch of Nitropaste. Patient's blood pressure then went down to a systolic of 102 so the Nitropaste was taken off. Patient also received 3 224 mg of aspirin. Patient states that the chest pain is a tightness and it is constant. It is getting better now that she is breathing better. There is no radiation of the pain. The pain is substernal. At its worst the pain was 10 out of 10 and it is currently a 4 out of 10. Past History Travel History Traveled to [place] past 21 day No Medical History Any Pertinent Medical History? see below for history Neurological: NONE EENT: NONE Cardiovascular: NONE Respiratory: LUNG CA Gastrointestinal: NONE Hepatic: NONE Renal: NONE Musculoskeletal: NONE Psychiatric: NONE Endocrine: NONE Cancer(s): lung cancer Surgical History Surgical History: non-contributory Psychosocial History Who do you live with Spouse Services at Home None What is your primary language Latvian Tobacco Use: Current Not Daily Daily Tobacco Use Amount/Type: =< 4 Cigarettes daily ETOH Use: denies use Illicit Drug Use: denies illicit drug use Family History Family History, If Any: Relation not specified for: *No pertinent family history Hx Contributory? No Review of Systems Review of Systems Constitutional: Reports: no symptoms. EENTM: Reports: no symptoms. Respiratory: Reports: see HPI, short of breath. Cardiovascular: Reports: see HPI, chest pain. GI: Reports: no symptoms. Genitourinary: Reports: no symptoms. Musculoskeletal: Reports: no symptoms. Skin: Reports: no symptoms. Neurological/Psychological: Reports: no symptoms. Hematologic/Endocrine: Reports: no symptoms. Immunologic/Allergic: Reports: no symptoms. All Other Systems: Reviewed and Negative Physical Exam Physical Exam General Appearance: well developed/nourished, alert, awake, anxious, moderate distress Head: atraumatic, normal appearance Eyes: Bilateral: PERRL, EOMI. Ears, Nose, Throat: normal pharynx, normal ENT inspection, hearing grossly normal Neck: normal inspection, supple, full range of motion Respiratory: normal breath sounds, chest non-tender, no respiratory distress, rales Cardiovascular: regular rate/rhythm, normal peripheral pulses Gastrointestinal: normal bowel sounds, soft, non-tender, no organomegaly Back: normal inspection, normal range of motion Extremities: normal inspection, normal capillary refill, normal range of motion, no edema Neurologic/Psych: no motor/sensory deficits, awake, alert, oriented x 3, normal mood/affect Skin: intact, normal color, warm/dry Core Measures ACS in differential dx? Yes No ASA d/t GIVEN BY EMS CVA/TIA Diagnosis No Sepsis Present: No Sepsis Focused Exam Completed? 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 12/20 0537 Active TROPONIN LEVEL 06/27 0537 Complete D-DIMER 12/20 536 Complete COMPREHENSIVE METABOLIC PANEL 12/20 536 Complete CBC WITHOUT DIFFERENTIAL 12/20 536 Complete B-TYPE NATRIURETIC PEP (BNP) 12/20 536 Complete EKG 12/20 525 Active Current Medications Sig/Matt Start time Last Medication Dose Stop Time Status Admin Heparin Sodium 4,000 UNIT ONCE ONE 12/20 644 UNVr (Porcine) 12/20 645 (Heparin Bolus) Heparin Sodium 25,000 UNIT Q24H 12/20 644 UNVr (Porcine) (Heparin) Sodium Chloride 500 ML Laboratory Tests 12/20/17 0540: pH 7.45, pCO2 24 L, pO2 76 L, HCO3 16 L, ABG O2 Sat (Measured) 94.0 L, P-50 (Temp Corrected) Y, Carboxyhemoglobin 1.0 L, O2 Concentration % 60%, Temperature 97.0, O2 Delivery Method PRB, Phlebotomy Draw Site RIGHT RADIAL 12/20/17 0539: Anion Gap 17 H, Estimated GFR > 60, BUN/Creatinine Ratio 22.0, Glucose 151 H, Calcium 8.6, Total Bilirubin 0.8, AST 33, ALT 25, Alkaline Phosphatase 72, Troponin I 0.19 *H, [id number] Pept 5050 H, Total Protein 6.0 L, Albumin 2.9 L, Globulin 3.1, Albumin/Globulin Ratio 0.9 L, D-Dimer High Sensitivty 1241 H, CBC w Diff MAN DIFF ORDERED, RBC 3.37 L, MCV 77.8 L, MCH 24.9 L, MCHC 32.0 L, RDW 19.2 H, MPV 7.8, Gran % 87.4 H, Lymphocytes % 6.1 L, Monocytes % 6.2, Eosinophils % 0.1, Basophils % 0.2, Absolute Granulocytes 16.1 H, Segmented Neutrophils 83 H, Absolute Lymphocytes 1.1 L, Lymphocytes 8 L, Monocytes 7, Absolute Monocytes 1.1 H, Absolute Eosinophils 0, Basophils 2, Absolute Basophils 0, Platelet Estimate ADEQUATE, Polychromasia 1+, Hypochromic- Microcytic 1+, Poikilocytosis 1+, Anisocytosis 1+, Microcytic Cells 1+, Ovalocytes 1+, [place] Cells FEW, Fld Total RBCs Counted 100 Initial ED EKG: SR WITH LATERAL ST DEPRESSIONS, NO CHANGE FROM YESTERDAY'S EKG Prior EKG: unchanged Rhythm Strip: normal sinus rhythm Comments: Discussed with Dr. Stevan Hanson. Either he or his partner will consult on the patient this morning. Start heparin. Departure Departure Disposition: STILL A PATIENT Condition: Guarded Clinical Impression Primary Impression: ACS (acute coronary syndrome) Referrals: Carolann Owen (PCP/Family) Departure Forms: Customer Survey General Discharge Information Admission Note Spoke With: Elder Merritt MD Documentation of Exam: Documentation of any treatments & extenuating circumstances including Concerns Regarding Discharge (functional status, medication knowledge or non-compliance, living conditions, etc.) that warrant an admission rather than observation: [ Telemetry monitoring, IV heparin, cardiology consultation, follow-up CT angiogram to evaluate for possible PE] Critical Care Note Critical Care Note Critical Care Time: mins: (90 MIN)
[2017-12-20] MEDS ORDERED: XTAMPZA ER18 MG (05:51)
[2017-12-20] MEDS ORDERED: OXYCODONE HCL5 M1 PO (05:51)
[2017-12-20 05:57] LABS: ABSOLUTE BASOPHIL COUNT 0 /CUMM (0.0-0.2); ABSOLUTE EOSINOPHIL COUNT 0 /CUMM (0.0-0.7); ABSOLUTE GRANULOCYTE CT 16.1 /CUMM (1.4-6.5); ABSOLUTE LYMPH COUNT 1.1 /CUMM (1.2-3.4); ABSOLUTE MONOCYTE COUNT 1.1 /CUMM (0.10-0.60); BASOPHIL % 0.2 % (0.0-2.0); EOSINOPHIL % 0.1 % (0-5); GRANULOCYTE % 87.4 % (42.2-75.2); HEMATOCRIT 26.3 % (37-47); MEAN CORPUSCULAR HGB 24.9 PG (27.0-31.0); MEAN CORPUSCULAR VOLUME 77.8 FL (81.0-99.0); MEAN PLATELET VOLUME 7.8 FL (7.4-10.4); PLATELET COUNT 324 /CUMM (130-400); RBC DISTRIBUTION WIDTH 19.2 % (11.5-14.5); RED BLOOD CELL CT 3.37 /CUMM (4.20-5.40)
[2017-12-20 06:04] LABS: WHITE BLOOD CELL COUNT 18.4 /CUMM (4.8-10.8)
--- NOTE | 2017-12-20 06:22 | RADIOLOGY REPORT ---
EXAMINATION: CHEST 1 VIEW CLINICAL INFORMATION: Chest pain, shortness of breath. COMPARISON: December 18, 2017. TECHNIQUE: An AP view of the chest is provided. FINDINGS: The cardiac silhouette is stable. There is interstitial prominence noted throughout the left lung. There is near complete opacification to the right lung secondary to multiple mass lesions. This is not significantly changed from the prior exam. The osseous structures are stable. IMPRESSION: Stable appearance of the chest with numerous mass lesions filling the right hemithorax. Stable interstitial prominence within the left lung.
[2017-12-20 07:21] VITALS: BP 109/60
--- NOTE | 2017-12-20 07:32 | CT SCAN REPORT ---
EXAMINATION: CT ANGIOGRAM OF THE CHEST WITH AND WITHOUT CONTRAST (CT PULMONARY ANGIOGRAM FOR PE) CLINICAL INFORMATION: LUNG CA, CHEST PAIN, SOB, +D-DIMER COMPARISON: Multiple priors, most recently chest radiograph from today and CT from 12/18/2017. TECHNIQUE: Prior to contrast administration, noncontrast localization images were obtained. Subsequently, multidetector volumetric imaging was performed from the thoracic inlet to below the diaphragms following the administration of 95 mL Optiray 320 intravenous contrast. No contrast reaction reported. Sagittal, coronal, and MIP oblique sagittal reformatted images were obtained on the CT workstation, uploaded to PACS, and reviewed. Total exam dose-length product 367 mGy-cm. FINDINGS: QUALITY OF STUDY/CONTRAST BOLUS: Satisfactory PULMONARY ARTERIES: No central or segmental pulmonary emboli. THORACIC AORTA: No aneurysm or dissection. LUNG: Multiple pleural-based lesions are again noted, which are without change from the CT performed 2 days prior. The largest is seen at the posterior aspect of the right lung, with a rounded appearance. This results in compressive atelectasis of the adjacent lung. There is slight mass effect upon the right lower lobe bronchus, resulting in slight narrowing as seen on series 2 image 194. There is diffuse centrilobular emphysema. Groundglass opacities which are present throughout the left lung are new from prior. These are fairly diffuse, greatest in a dependent position. There is also increased interlobular septal thickening. The presence of these opacities somewhat limits evaluation of the previously seen pulmonary nodules. There is redemonstration of the 0.9 cm pleural-based nodule at the left lung base on series 2 image 395. Right upper lobe 0.7 cm nodule, series 2 image 137 is unchanged. Please refer to the recent prior CT for full characterization of additional nodules. There is no definite pleural effusion. No pneumothorax. MEDIASTINUM: The heart is normal in size. No pericardial effusion. No pathologically enlarged lymph nodes are seen. The visualized portion of the thyroid gland is unremarkable. No evidence of septal bowing or right heart strain. CHEST WALL/AXILLA: No axillary or internal mammary lymphadenopathy. OSSEOUS STRUCTURES: No acute or suspicious osseous abnormality. Multilevel degenerative changes are present in the spine. Cervical fusion hardware noted. UPPER ABDOMEN: Bilateral adrenal gland nodules are present. These are indeterminant in Hounsfield unit measurements, unchanged in appearance from the recent prior study. No reflux of contrast into the hepatic veins to suggest elevated right heart pressures. IMPRESSION: 1. No pulmonary embolism. 2. Multiple pleural-based masses throughout the right hemithorax are unchanged from the recent prior CT performed 12/18/2017. Persistent associated atelectasis with partial compression of the right lower lobe bronchus. 3. There is new interlobular septal thickening with groundglass opacities within the left lung. Asymmetric edema is the leading consideration. Infectious/inflammatory processes are also possible, particularly in the setting of emphysema. 4. Unchanged bilateral adrenal masses. VTE: negative
--- NOTE | 2017-12-20 07:39 | History & Physical ---
General Information and HPI MD Statement: I have seen and personally examined PACHECO SANDHU and documented this H&P. The patient is a 67 year old F who presented with a patient stated chief complaint of [shortness of breath]. Source of Information: patient, family, old records, EMS Exam Limitations: no limitations Allergies/Medications Allergies: Coded Allergies: No Known Allergies (11/07/17) Home Med list Aspirin (Aspirin*) 81 MG TAB.CHEW 1 TAB PO DAILY HEART Atorvastatin Calcium 20 MG TABLET 1 TAB PO DAILY CHOLESTEROL (Reported) Ciprofloxacin HCl (Cipro) 500 MG TABLET 1 TAB PO BID DIVERTICULITIS Enalapril Maleate 20 MG TABLET 1 TAB PO DAILY BP (Reported) Fluoxetine HCl 20 MG CAPSULE 1 CAP PO DAILY MENTAL HEALTH (Reported) Gabapentin 300 MG CAPSULE 1 CAP PO QPM UNKNOWN (Reported) Metronidazole (Flagyl) 500 MG TABLET 1 TAB PO Q8 diverticulitis Oxycodone HCl 5 MG TABLET 1 TAB PO BIDP PRN PATIENT CONTROLLED ANALGESIA ( Reported) Oxycodone Myristate (Xtampza ER) 18 MG CAP.SPR.12 PAIN CONTROL (Reported) Compliance With Home Meds: GOOD Past History Travel History Traveled to [place] past 21 day No Medical History Neurological: NONE EENT: NONE Cardiovascular: NONE Respiratory: LUNG CA Gastrointestinal: NONE Hepatic: NONE Renal: NONE Musculoskeletal: NONE Psychiatric: NONE Endocrine: NONE Blood Disorders: NONE Cancer(s): lung cancer [employer]/Reproductive: NONE Surgical History Surgical History: non-contributory Past Family/Social History Family History Relations & Conditions if any Relation not specified for: *No pertinent family history Psychosocial History Who Do You Live With? spouse Services at Home: None ETOH Use: denies use Illicit Drug Use: denies illicit drug use Functional Ability ADLs Independent: dressing, eating, toileting, bathing. Ambulation: independent IADLs Needs Assist: shopping, housework, finances, food prep, telephone, transportation, medication admin. Core Measures/Misc (03/12) Cerebrovascular Accident CVA/TIA Diagnosis: No Sepsis (View protocol) Sepsis Present: Yes If YES complete Sepsis Event Note If YES complete Sepsis Event Note
[2017-12-20 08:28] LABS: PT 13.9 SEC (9.4-12.5); PTT 21 SEC (25-37)
== END 2017-12-20 10:30 | disposition short-term general hospital (02) ==
LOC: ERH 05:25 → ERHI 07:13 → ERH 07:13 → CANRESERV 07:56 → ENRESERV 07:56 → ERH 10:30 → ERHI 10:30 → CANBEDREQ 10:37
PROVIDERS: Emergency Medicine
DX: I24.9 Acute ischemic heart disease, unspecified (principal); R07.89 Other chest pain; F17.210 Nicotine dependence, cigarettes, uncomplicated
CPT/HCPCS: ERO; 71045; 93005; 93010; 96374; 99291; J1644; J1940; J3490